=== PATIENT | male | born 1940 | race Caucasian/White ===

== ENCOUNTER 2016-11-27 19:46 | Inpatient (IN) | payer MEDICARE, OTHER ==
[~2016-11-27] VITALS: Ht 157.5 cm; Wt 64.5 kg
[2016-11-27] MEDS ORDERED: CLON-379 PO (21:06)
[2016-11-27] MEDS ORDERED: PIOG30TA26 PO (21:07)
[2016-11-27] MEDS ORDERED: AMLO1CAP10 PO (21:07)
[2016-11-27] MEDS ORDERED: SILO8CAP PO (21:08)
[2016-11-27] MEDS ORDERED: ESOM40CA PO (21:09)
[2016-11-27] MEDS ORDERED: ASPI-664 PO (21:09)
[2016-11-27] MEDS ORDERED: OLME1TAB5 PO (21:09)
[2016-11-27] MEDS ORDERED: ADV25050 INHALATION (21:10)
[2016-11-27] MEDS ORDERED: EZET10TA3 PO (21:10)
[2016-11-27] MEDS ORDERED: MECL-77 PO (21:11)
[2016-11-27] MEDS ORDERED: UMEC62.5 IH (21:11)
[2016-11-27] MEDS ORDERED: NAPR-688 PO (21:12)
[2016-11-27] MEDS ORDERED: MEMA5TAB PO (21:12)
[2016-11-27] MEDS ORDERED: LORA0.5T PO (21:13)
[2016-11-27 21:34] LABS: BASOPHILS % 0.4 % (0.0-2.0); EOSINOPHILS # 0.1 10^3/ul (0.0-0.5); HEMATOCRIT 37.6 % (42.0-52.0); HEMOGLOBIN 12.8 g/dl (14.0-18.0); LYMPHOCYTES # 1.4 10^3/ul (0.8-2.9); LYMPHOCYTES % 17.6 % (15.0-51.0); MEAN CORPUSCULAR HEMOGLOBIN 31.1 pg (29.0-33.0); MEAN CORPUSCULAR VOLUME 91.3 fl (82.0-101.0); MEAN PLATELET VOLUME 9.2 fl (7.4-10.4); MONOCYTE # 0.7 10^3/ul (0.3-0.9); MONOCYTES % 9.5 % (0.0-11.0); NEUTROPHILS % 71.1 % (39.0-77.0); PLATELET COUNT 393 10^3/UL (140-415); RED BLOOD COUNT 4.12 10^6/ul (4.70-6.10); RED CELL DISTRIBUTION WIDTH 12.3 % (11.5-14.5); WHITE BLOOD COUNT 7.8 10^3/ul (4.8-10.8)
[2016-11-27 21:42] LABS: INR 1.24; PROTIME 15.7 Sec (12.2-14.2); PT RATIO 1.2
[2016-11-27 21:43] LABS: PARTIAL THROMBOPLASTIN TIME 29.5 Sec (25.0-35.0)
[2016-11-27 21:48] LABS: ANION GAP 20 (8-16); BLOOD UREA NITROGEN 23 mg/dl (7-20); CALCIUM 9.5 mg/dl (8.4-10.2); CARBON DIOXIDE 27 mmol/L (21-31); CHLORIDE 102 mmol/L (97-110); CREATININE 0.96 mg/dl (0.61-1.24); GLUCOSE 151 mg/dl (70-220); POTASSIUM 4.2 mmol/L (3.5-5.1); SODIUM 145 mmol/L (135-144)
--- NOTE | 2016-11-27 21:50 | RADRPT ---
PROCEDURE: XR Chest. CLINICAL INDICATION: Chest pain. TECHNIQUE: Portable AP view of the chest was obtained. COMPARISON: None. FINDINGS: The cardiomediastinal silhouette is enlarged. Bibasilar atelectasis and pulmonary vascular congesti on is present. Blunting of the costophrenic angles is compatible with small bilateral pleural effus ions. There is no evidence of pneumothorax. Degenerative spondylosis of the thoracic spine is note d. There is no evidence of acute osseous abnormality. Faint calcification is seen within the aorta RPTAT:HJJR IMPRESSION: 1. Combination of findings consistent with congestive heart failure with bilateral pleural effusions . Consider follow-up evaluation. 2. Aortic atherosclerosis is present. Physician Batsheva Date Time Electronically viewed and signed by Zacarias Crawford Physician on 11/27/2016 21:50 JR/
[2016-11-27 22:07] LABS: TROPONIN-I < 0.012 ng/ml (0.00-0.12)
--- NOTE | 2016-11-27 22:14 | ERA ---
ER Documentation Chief Complaint Date/Time DATE: 11/27/16 TIME: 22:09 Chief Complaint sent by his PMD(Dr Gutierrez) to [facility] & possible admit HPI This is a 76-year-old male who was sent in to the emergency room by his tire rebuilder, Dr. Mendenhall for evaluation of chest pain. This patient had an outpatient echocardiogram which did reveal pericardial effusion. The patient was sent to the ER for admission for pericardiocentesis. He states that he has some chest pain worse with laying flat. He denies any shortness of breath at this time.The patient is denying any aggravating or relieving factors for his symptoms ROS All systems reviewed and are negative except as per history of present illness. Medications Home Meds Reported Medications Lorazepam* (Lorazepam*) 0.5 Mg Tablet, 0.5 MG PO Q8 Y for ANXIETY, TAB 11/27/16 Memantine* (Namenda*) 5 Mg Tablet, 5 MG PO BID, #60 TAB 11/27/16 Naproxen* (Naproxen*) 500 Mg Tablet, 500 MG PO BID, TAB 11/27/16 Meclizine Hcl* (Meclizine Hcl*) 25 Mg Tablet, 25 MG PO Q8H Y for DIZZINESS, TAB 11/27/16 Umeclidinium [place] (Incruse Ellipta) 62.5 Mcg Blst.w.dev, 62.5 MCG IH DAILY 11/27/16 Salmeterol Xinaf/Fluticasone* (Advair*) 250-50 Diskus Inhaler, 1 INH INHALATION BID, #1 INHALER 11/27/16 Ezetimibe* (Zetia*) 10 Mg Tablet, 10 MG PO DAILY, TAB 11/27/16 Esomeprazole Mag Trihydrate (Nexium) 40 Mg Capsule.dr, 40 MG PO DAILY, #30 CAP 11/27/16 Aspirin* (Aspirin* EC) 81 Mg Tablet.dr, 81 MG PO DAILY, TAB 11/27/16 Olmesartan/Hydrochlorothiazide (Benicar Hct 40-25 mg Tablet) 1 Each Tablet, 1 EACH PO DAILY, TAB 11/27/16 Silodosin (Rapaflo) 8 Mg Capsule, 8 MG PO HS, CAP 11/27/16 Pioglitazone Hcl* (Pioglitazone Hcl*) 30 Mg Tablet, 30 MG PO DAILY, TAB 11/27/16 Amlodipine Besylate/Benazepril (Amlodipine-Benazepril 5-20 mg) 1 Each Capsule, 1 EACH PO DAILY, CAP 11/27/16 Clonidine Hcl* (Clonidine Hcl*) 0.1 Mg Tab, 0.1 MG PO TID Y for HTN, TAB 11/27/16 Allergies Allergies: Coded Allergies: No Known Allergy (Unverified , 11/27/16) PMhx/Soc History of Surgery: No Anesthesia Reaction: No Hx Neurological Disorder: No Hx Respiratory Disorders: No Hx Cardiac Disorders: Yes (htn) Hx Psychiatric Problems: No Hx Miscellaneous Medical Probl: Yes (dm) Hx Alcohol Use: No Hx Substance Use: No Hx Tobacco Use: Yes Smoking Status: Former smoker Physical Exam Vitals Vital Signs Date Time Temp Pulse Resp B/P Pulse Ox O2 Delivery O2 Flow Rate FiO2 11/27/16 21:37 98.5 74 16 110/74 98 Nasal Cannula 2.0 11/27/16 20:52 Nasal Cannula 2 11/27/16 20:52 71 22 125/79 96 Room Air 11/27/16 20:27 98.9 76 18 118/74 97 Physical Exam INITIAL VITAL SIGNS: Reviewed by me GENERAL: The patient is well developed and appropriate for usual state of health in no apparent distress HEENT: Pupils equal, round, and reactive to light. EOMI. There is no scleral icterus. NECK: C-spine is soft and supple, there is no meningismus. There is no cervical lymphadenopathy. LUNGS: Coarse breath sounds bilaterally. There are no rales, wheezes or rhonchi. HEART: Regular rate and rhythm, no murmurs, clicks, rubs or gallops. ABDOMEN: Soft, non-tender, non-distended. There are bowel sounds in all four quadrants. No rebound or guarding. EXTREMITIES: There is no peripheral cyanosis or edema. No focal swelling or erythema. NEUROLOGICAL: The patient moves all four extremities with 5/5 strength. Cranial nerves II - XII are intact. Normal gait. Alert and oriented SKIN: There is no apparent rash or petechiae. HEME/LYMPHATIC: There is no evidence of excessive bruising or lymphedema. PSYCHIATRIC: The patient does not appear anxious or depressed. Result Diagram: 8/30/17 2049 8/30/17 2049 Results 24 hrs Laboratory Tests Test 11/27/16 20:49 White Blood Count 7.810^3/ul Red Blood Count 4.1210^6/ul Hemoglobin 12.8g/dl Hematocrit 37.6% Mean Corpuscular Volume 91.3fl Mean Corpuscular Hemoglobin 31.1pg Mean Corpuscular Hemoglobin Concent 34.0g/dl Red Cell Distribution Width 12.3% Platelet Count 93554^3/UL Mean Platelet Volume 9.2fl Neutrophils % 71.1% Lymphocytes % 17.6% Monocytes % 9.5% Eosinophils % 1.0% Basophils % 0.4% Nucleated Red Blood Cells % 0.0/100WBC Neutrophils # (Manual) 5.510^3/ul Lymphocytes # 1.410^3/ul Monocytes # 0.710^3/ul Eosinophils # 0.110^3/ul Basophils # 0.010^3/ul Nucleated Red Blood Cells # 0.010^3/ul Prothrombin Time 15.7Sec Prothrombin Time Ratio 1.2 INR International Normalized Ratio 1.24 Activated Partial Thromboplast Time 29.5Sec Sodium Level 145mmol/L Potassium Level 4.2mmol/L Chloride Level 102mmol/L Carbon Dioxide Level 27mmol/L Anion Gap 20 Blood Urea Nitrogen 23mg/dl Creatinine 0.96mg/dl Glucose Level 151mg/dl Calcium Level 9.5mg/dl Troponin I < 0.012ng/ml Procedures/[facility] EKG: Rate/Rhythm: [Normal Sinus Rhythm] QRS, ST, T-waves: [No changes consistent w/ acute ischemia] Impression: [No evidence of ischemia or arrhythmia] Chest X-ray 1V Interpreted by me: Soft Tissue: No acute abnormalities Bones: No acute abnormalities Mediastinum/Cardiac Silhouette/Lungs: Pulmonary vascular congestionThis 76- year-old male presents to the emergency room for evaluation of chest pain. When I evaluated him he was hemodynamically stable, and nontoxic appearing. The patient was sent in by his tire rebuilder because he had an outpatient ultrasound which did show a pericardial effusion. The patient was sent in for admission for a pericardiocentesis tomorrow, November 28, 2016. This patient has no signs of cardiac tamponade in the emergency room, he is not hypotensive, he is hemodynamically stable and will be admitted to his primary care physician, Dr. Hernandez who is aware and okay with the plan of care. This patient will be placed in the intensive care unit at this time Critical Care: Excluding all billable procedures Time: 34 minutes Treatments/Evaluations: Close monitoring and treatment of unstable vital signs, cardiorespiratory, and neurologic status, while maintaining tight balance of fluid, respiratory, and cardiac interventions, lab value interpretation, multiple bedside reevaluation, coordination of nursing care, multiple consultations. Departure Diagnosis: Primary Impression: Pericardial effusion Additional Impression: Normocytic anemia Condition: Stable RUBI DELGADO DO Nov 27, 2016 22:14
[2016-11-28] VITALS (25 sets, daily range): BP systolic 99–138; BP diastolic 60–105; PULSE 56–74; RESP 12–24; TEMP 98.1; Ht 157.5 cm; Wt 64.5 kg
[2016-11-28] MEDS ORDERED: ACETAMINOPHEN 650 MG SUPP PR PRN
[2016-11-28] MEDS ORDERED: SOD CHLORIDE 0.9% 1,000 ML IV SCH
[2016-11-28 03:14] LABS: CREATINE KINASE 36 IU/L (23-200)
[2016-11-28 03:25] LABS: CK-MB 0.63 ng/ml (0.0-2.4)
[2016-11-28 03:36] LABS: TROPONIN-I < 0.012 ng/ml (0.00-0.12)
[2016-11-28 05:44] LABS: BASOPHILS % 0.5 % (0.0-2.0); EOSINOPHILS # 0.1 10^3/ul (0.0-0.5); EOSINOPHILS % 1.2 % (0.0-7.0); HEMATOCRIT 32.2 % (42.0-52.0); HEMOGLOBIN 10.5 g/dl (14.0-18.0); LYMPHOCYTES # 1.6 10^3/ul (0.8-2.9); LYMPHOCYTES % 24.1 % (15.0-51.0); MEAN CORPUSCULAR HEMOGLOBIN 30.3 pg (29.0-33.0); MEAN CORPUSCULAR HGB CONC 32.6 g/dl (32.0-37.0); MEAN CORPUSCULAR VOLUME 92.8 fl (82.0-101.0); MEAN PLATELET VOLUME 9.1 fl (7.4-10.4); MONOCYTE # 0.7 10^3/ul (0.3-0.9); MONOCYTES % 11.5 % (0.0-11.0); NEUTROPHILS % 62.2 % (39.0-77.0); PLATELET COUNT 303 10^3/UL (140-415); RED BLOOD COUNT 3.47 10^6/ul (4.70-6.10); RED CELL DISTRIBUTION WIDTH 12.6 % (11.5-14.5); WHITE BLOOD COUNT 6.4 10^3/ul (4.8-10.8)
[2016-11-28] MEDS ORDERED: PANTOPRAZOLE 40 MG INJ IV SCH (06:00)
[2016-11-28 06:02] LABS: INR 1.26; PROTIME 15.9 Sec (12.2-14.2); PT RATIO 1.2
[2016-11-28 06:03] LABS: PARTIAL THROMBOPLASTIN TIME 31.7 Sec (25.0-35.0)
[2016-11-28] MEDS ORDERED: FENTAnyl 50 MCG/ML VIAL ONE (07:39)
[2016-11-28] MEDS ORDERED: MIDAZOLAM 1 MG/ML 2 ML INJ ONE (07:39)
[2016-11-28] MEDS ORDERED: LIDOCAINE 1% (MDV) 20 ML INJ ONE ×2 (07:39→08:17)
--- NOTE | 2016-11-28 07:43 | CONS ---
Date/Time of Note Date/Time of Note DATE: 11/28/16 TIME: 07:34 Assessment/Plan Assessment/Plan Chief Complaint/Hosp Course Large pericardial effusion: Pt has been progressively symptomatic over just 2 weeks and has early tamponade physiology by echo. Clinically hemodynamics do not suggest tamponade but the pt needs pericardiocentesis for diagnosis and symptom relief. Pt and family are agreeable. Dr. Nicole will be on standby. 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 Due to severe progressive symptoms, the pt was sent for admission for pericardiocentesis for diagnosis and symptom relief. Currently still with SOB at rest but no chest pain. Agreeable to pericardiocentesis and understands the risks and benefits. per HPI Past Medical History per HPI Social History Smoking Status: Former smoker Exam/Review of Systems Vital Signs Vitals Vital Signs Date Time Temp Pulse Resp B/P Pulse Ox O2 Delivery O2 Flow Rate FiO2 11/28/16 06:46 98.1 69 24 112/72 97 Room Air 2.0 Nasal Cannula Exam Constitutional: alert, oriented Head: atraumatic, normocephalic Neck: jvd (12cm) Respiratory: crackles/rales, diminished breath sounds, No clear to auscultation Cardiovascular: edema (1-2+), regular rate and rhythm, systolic murmur (3/6 systolic murmur ) Gastrointestinal: non-tender, soft Extremities: normal pulses Neurological: nl mental status, nl speech Skin: No rash or lesions Results Result Diagram: 11/28/1652111/27/162048 Results 24 hrs Laboratory Tests Test 11/27/16 20:49 11/28/16 02:30 11/28/16 05:22 White Blood Count 7.8 6.4 Red Blood Count 4.12 L 3.47 L Hemoglobin 12.8 L 10.5 L Hematocrit 37.6 L 32.2 L Mean Corpuscular Volume 91.3 92.8 Mean Corpuscular Hemoglobin 31.1 30.3 Mean Corpuscular Hemoglobin Concent 34.0 32.6 Red Cell Distribution Width 12.3 12.6 Platelet Count 393 303 # Mean Platelet Volume 9.2 9.1 Neutrophils % 71.1 62.2 Lymphocytes % 17.6 24.1 Monocytes % 9.5 11.5 H Eosinophils % 1.0 1.2 Basophils % 0.4 0.5 Nucleated Red Blood Cells % 0.0 0.0 Neutrophils # (Manual) 5.5 4.0 Lymphocytes # 1.4 1.6 Monocytes # 0.7 0.7 Eosinophils # 0.1 0.1 Basophils # 0.0 0.0 Nucleated Red Blood Cells # 0.0 0.0 Prothrombin Time 15.7 H 15.9 H Prothrombin Time Ratio 1.2 1.2 INR International Normalized Ratio 1.24 1.26 Activated Partial Thromboplast Time 29.5 31.7 Sodium Level 145 H Potassium Level 4.2 Chloride Level 102 Carbon Dioxide Level 27 Anion Gap 20 H Blood Urea Nitrogen 23 H Creatinine 0.96 Glucose Level 151 Calcium Level 9.5 Troponin I < 0.012 < 0.012 Creatine Kinase 36 Creatine Kinase Index 1.8 Creatinine Kinase MB (Mass) 0.63 Medications Medications Current Medications Acetaminophen (Tylenol Supp) 650 mg Q6H PRN [place] PAIN; Start 11/28/16 at 00:00 Pantoprazole 40 mg 40 mg DAILY@06 IV Last administered on 11/28/16 06:42; Admin Dose 40 MG; Start 11/28/16 at 06:00 Sodium Chloride (NS) 1,000 ml @ 0 mls/hr Q0M IV ; Start 11/28/16 at 00:00 PAUL MCKEON Nov 28, 2016 07:43
--- NOTE | 2016-11-28 08:54 | OPR ---
Date/Time of Note Date/Time of Note DATE: 11/28/16 TIME: 08:45 Operative Report Free Text/Dictation Procedure Date: 11/28/2016 Procedures Performed: Pericardiocentesis Pre-operative Diagnosis:Large pericardial effusion, CHF Post-operative Diagnosis:same Indications:76 yo M with large symptomatic pericardial effusion with early tamponade physiology on echo. Description of Procedure: After informed consent, the patient was brought to the cardiac catheterization lab. The procedure site was prepped and draped in usual manner. The patient was premedicated with versed 2mg and fentanyl 75 mcg. 10mL lidocaine was injected into the subxyphoid area. Under ultrasound guidance, the needle was advanced to the pericardium until fluid was obtained. The wire was advanced and under fluoroscopy confirmed to be in the pericardium. Next the pigtail catheter was advanced and agitated saline confirmed that it was in the pericardium as well. Findings: A total of 700 mL of sanguinous effusion was removed. 120 mL was sent to the lab for appropriate studies. The pt tolerated the procedure well. Assessment: Large pericardial effusion s/p pericardiocentesis Plan: To ICU for observation Stat CXR keep pigtail in for 1-2 days until effusion <30-50mL daily F/u cytology, cultures PAUL MCKEON Nov 28, 2016 08:54
[2016-11-28] MEDS ORDERED: KETOROLAC 30 MG INJ IM STA (08:55)
--- NOTE | 2016-11-28 09:17 | HP ---
Date/Time of Note Date/Time of Note DATE: 11/28/16 TIME: 09:01 Assessment/Plan VTE Prophylaxis VTE Prophylaxis Intervention: ambulation, anti-embolic stocking VTE Contraindication Reason: peripheral vascular disease Lines/Catheters IV Catheter Type (from Nrs): Saline Lock Central line still needed: No Urinary Cath still in place: No Reason Cath still needed: urinary retention Assessment/Plan Assessment/Plan 1.Acute pericarditis- s/p pericardocentesis 2.DM type 2- corrected by diet 3.HTN- now hypotensive 4.LBP- with spinal stenosis 5.Dyslipidemia 6.Memory impairment 7.PTSD 8.BPH 9.LORENZO 10.Osteoporosis 11.Dizziness 12.Major depression 13.Weight loss 14.Hx of having 1 degree AV block 15.Recurrent pneumonias 16. Low vit "D" level 17.Pleurisy with possible polyserositis Cont'd Hospitalization Reason: as above. HPI/ROS Admit Date/Time Admit Date/Time cp with worsening of sob last 3-4 weeks after upper resp infection and bronchitis/pneumonia. Chest pressure and sob improved only mildly after antibiotics and short course of prednisone tapering down (from 30mg x 2 days until 10mg qd x 2 days). Referred to for cardiology evaluation.Pericarditis was Diagnosed. At the time of this dictation more than 700 cc of bloody fluid was removed in a cat lab and the patient is in 112 of ICU in stable condition. ROS Subjective hx not possible: pt critical status Constitutional: diaphoresis, fatigue, nausea, poor po, weight change, No chills, No disoriented, No febrile, No improved, No no complaints, No other Eyes: No discharge, No no complaints, No other, No pain, No redness, No visual change ENT: No bleeding, No congestion, No discharge, No dysphagia, No no complaints, No other, No pain, No sore throat Respiratory: cough, pain, pleuritic pain, shortness of breath, No no complaints, No other, No sputum, No wheezing Cardiovascular: chest pain, lightheadedness, orthopenea, palpitations, paroxysmal nocturnal dyspnea, No edema, No no complaints, No other Gastrointestinal: constipation, decreased appetite, flatus, nausea, passing stool, No blood, No diarrhea, No no complaints, No other, No pain, No vomiting Genitourinary: dysuria, No bleeding, No discharge, No flank pain, No hematuria, No no complaints, No other Musculoskeletal: back pain, bone/joint pain, No neck pain, No no complaints, No other, No restricted range of motion, No swelling Skin: rash, No bruising, No erythema, No laceration, No no complaints, No other, No pruritis, No skin lesions Neurologic: dizziness, No confusion, No focal-weakness, No headache, No no complaints, No other, No seizure, No syncope Endocrine: weight change (lost 4-5 lb in 3 weeks.), No dry skin, No no complaints, No other, No polydypsia, No polyuria, No temp intolerance Lymphatic: No adenopathy, No lymphadema, No no complaints, No other, No tender nodes Psychological: anxiety, No confusion, No depression, No nl mood/affect, No no complaints, No other, No suicidal Immunologic: No immunodeficiency, No no complaints, No other, No pruritis, No rhinitis, No urticaria PMH/Family/Social Past Medical History Medical History: angina, congestive heart failure, coronary artery disease, diabetes (resolved after the weight loss.), GERD, high cholesterol, hypertension, urinary tract infection Past Surgical History Past Surgical Hx: endoscopy Family History Significant Family History: heart disease Social History Alcohol Use: none Smoking Status: Former smoker Drug Use: none Exam/Review of Systems Vital Signs Vitals Vital Signs Date Time Temp Pulse Resp B/P Pulse Ox O2 Delivery O2 Flow Rate FiO2 11/28/16 06:46 98.1 69 24 112/72 97 Room Air 2.0 Nasal Cannula Exam Constitutional: alert, distress, frail, oriented, well developed, No non-verbal, No other Psych: anxiety, No confusion, No depression, No nl mood/affect, No no complaints, No other, No suicidal Head: atraumatic, No hematomas, No lacerations, No normocephalic, No other Eyes: EOMI, PERRL (s/p cataractectomy changes.), nl lids, No fundi, disc, No icteric, No nl conjunctiva, No nl sclera, No other ENMT: other, tympanic membranes (sclertotic.) Neck: bruits, jvd, nuchal rigidity Respiratory: diminished breath sounds, normal air movement, No clear to auscultation, No congested cough, No crackles/rales, No intercostal retraction, No labored breathing, No other, No respirations, No tactile fremitus, No wheezing Cardiovascular: bruits, systolic murmur, No S3, No S4, No diastolic murmur, No edema, No gallop, No irregular rhythm, No jugular venous distention (JVD), No murmurs/extra sounds, No nl pulses, No other, No regular rate and rhythm, No rub Gastrointestinal: nl liver, spleen, soft, No ascites, No bowel sounds, No distended, No firm, No hepatomegaly, No mass , No non-tender, No other, No rebound or guarding, No splenomegaly, No surgical scars, No tender Genitourinary - Male: nl penis, nl scrotum, No CVA tenderness, No discharge, No other Musculoskeletal: joint tenderness, muscle tone, muscle weakness, nl gait and stance (unstable.), No nl extremities to inspection, No other, No range of motion, No spine non- tender, No swelling Extremities: No calf tenderness, No clubbing, No cyanosis, No edema, No normal pulses, No other, No palpable cord, No pitting pedal edema, No tenderness Labs Result Diagram: 11/28/1652111/27/162048 Medications Medications Current Medications Acetaminophen (Tylenol Supp) 650 mg Q6H PRN [place] PAIN; Start 11/28/16 at 00:00 Pantoprazole 40 mg 40 mg DAILY@06 IV Last administered on 11/28/16t 06:42; Admin Dose 40 MG; Start 11/28/16 at 06:00 Sodium Chloride (NS) 1,000 ml @ 0 mls/hr Q0M IV ; Start 11/28/16 at 00:00 Colchicine (Colchicine) 0.6 mg BID PO ; Start 11/28/16 at 10:30 Famotidine (Pepcid Iv) 20 mg BID IV ; Start 11/29/16 at 09:00 SALEEM LEWIS MD Nov 28, 2016 09:12
--- NOTE | 2016-11-28 09:53 | RADRPT ---
Echocardiogram Report Patient Name: JOSE MANUEL PAREKH Gender: Male Date: 1940 Study Date: 28-Nov-2016 Paedodontist: Marielos Cerda RDCS Location: [facility] Ref. Physician: DEREK ALBRIGHT Quality: Good Procedures: Transthoracic echocardiogram examination. Indications: Pericardiocentesis. Findings Pericardium: Large pericardial effusion up to 3.1 cm in subcostal views with evidence of RV collapse prior to pericardiocentesis. Agitated saline confirms proper placement of pigtail catheter. Resolution of pericardial effusion after pericardiocentesis. Conclusions 1.Limited study during pericardiocentesis. 2.Large pericardial effusion up to 3.1 cm in subcostal views with evidence of RV collapse prior to pericardiocentesis. 3.Agitated saline confirms proper placement of pigtail catheter. 4.Resolution of pericardial effusion after pericardiocentesis. Electronically Signed By: Derek Albright 28-Nov-2016 09:52:46 -0700 Patient Name: JOSE MANUEL PAREKH Study Date: 28-Nov-2016 [id number]
--- NOTE | 2016-11-28 09:54 | RADRPT ---
PROCEDURE: XR Chest 1 view. CLINICAL INDICATION: Chest pain, status post pericardiocentesis. TECHNIQUE: AP views of the chest was obtained. COMPARISON: Yesterday FINDINGS: The heart is large. Calcified atherosclerosis is noted in the aorta. Angiocatheter is identified ov er the inferior margin of the heart and could reflect a pericardial drain. Overall heart size is si milar to prior exam. Atelectasis versus infiltrates at the lung bases, combined with small pleural effusions are stable. Central pulmonary vascular congestion and interstitial prominence is unchange d. The osseous structures are unchanged. IMPRESSION: Cardiomegaly with calcified atherosclerosis in the aorta. New pigtail catheter over the inferior margin of the heart that could reflect a pericardial drain. U nchanged heart size. Stable central pulmonary vascular congestion and mild interstitial prominence in both lungs. Stable atelectasis versus infiltrates at the lung bases, combined with small pleural effusions. RPTAT: AA .Adonay Galo MD, MD Date Time Electronically viewed and signed by .Adonay Galo MD, on 11/28/2016 09:53 .P/
[2016-11-28 10:28] LABS: FLD MN% 88.4 %; FLD PMN% 11.6 %; FLD RBC 1757 /uL; FLD WBC 3712 /cmm
[2016-11-28] MEDS: COLCHICINE 0.6 MG TAB PO SCH ×3 (10:30→20:54)
[2016-11-28 10:36] LABS: CREATINE KINASE 50 IU/L (23-200)
[2016-11-28 10:46] LABS: FLD CLARITY BLOODY; FLD COLOR RED; FLD TYPE PERICARDIAL
[2016-11-28 10:48] LABS: CK-MB 1.41 ng/ml (0.0-2.4); TROPONIN-I < 0.012 ng/ml (0.00-0.12)
[2016-11-28 11:13] LABS: FLUID GLUCOSE 102 mg/dl; FLUID TYPE PERICARDIAL FLUID
[2016-11-28 11:14] LABS: FLUID TOTAL PROTEIN 4.8 g/dl; FLUID TYPE PERICARDIAL FLUID
--- NOTE | 2016-11-28 11:28 | CONS ---
Date/Time of Note Date/Time of Note DATE: 11/28/16 TIME: 11:21 Assessment/Plan Assessment/Plan Additional Assessment/Plan Chest x-ray was reviewed from today which is showing pericardial drain in place. Minimal bilateral patchy infiltrates are present. Assessment and recommendations; 1. Patient admitted with shortness of breath discovered to have very large pericardial effusion with early tamponade, status post pericardiocentesis with placement of pericardial drain. 2. Possibly bilateral pneumonia. Next Continue current supportive care. Add cefepime and doxycycline IV. Further antibiotic adjustment to be done once pericardial fluid culture results are obtained. Follow-up chest x-ray in 24 hours. Consultation Date/Type/Reason Admit Date/Time cp with worsening of sob last 3-4 weeks after upper resp infection and bronchitis/pneumonia. Chest pressure and sob improved only mildly after antibiotics and short course of prednisone tapering down (from 30mg x 2 days until 10mg qd x 2 days). Referred to for cardiology evaluation.Pericarditis was Diagnosed. At the time of this dictation more than 700 cc of bloody fluid was removed in a cat lab and the patient is in 112 of ICU in stable condition. Date of Consultation: Nov 28, 2016 Type of Consultation: Pulmonary/critical care Reason for Consultation Pulmonary consultation requested for evaluation of shortness of breath. History of presenting illness; and is a pleasant 76-year-old male who was sent over to the ER by the patient's marketing analytics analyst with complaints of chest pain, an echocardiogram done on outpatient basis revealed a large pericardial effusion with early tamponade. This morning the patient underwent pericardiocentesis, with placement of pericardial drain, 750 mL of fluid was drained. The patient is now reporting decreased shortness of breath but is complaining of pain at the catheter insertion site. Detailed history was obtained from patient's 2 children who were present in the room. According to then the patient has been having shortness of breath and cough for the last several weeks and has been seen at various hospitals without definitive diagnosis being made until just recently. He himself denies any coughing no any sputum production hemoptysis fever chills. According to the patient's family there is no prior history of any pericardial effusion or any other episodes of shortness of breath or pneumonia. Past medical history; 1. History of bilateral cataract surgery. 2. No history of any pneumonia, any pericardial effusion. Medications; reviewed. Allergies; none. Social history; patient quit smoking 40 years ago. Most of alcohol or drug abuse. Family history; patient is a . Has 2 children. No history of any significant illnesses in the family. 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 Review of systems; denies any headache, visual changes. Complains of chest pain at pericardial catheter insertion site in the epigastric area. Denies any wheezing, sputum production or hemoptysis. Denies any weight loss. Any fever or chills. Denies any abdominal pain, nausea vomiting. Any melena or hematochezia. Any weight loss. Denies any orthopnea. Shortness of breath is now improved. General exam; elderly male, awake and alert. Currently in no distress. Eyes: No discharge, No no complaints, No other, No pain, No redness, No visual change ENT: No bleeding, No congestion, No discharge, No dysphagia, No no complaints, No other, No pain, No sore throat Respiratory: cough, pain, pleuritic pain, shortness of breath, No no complaints, No other, No sputum, No wheezing Cardiovascular: chest pain, lightheadedness, orthopenea, palpitations, paroxysmal nocturnal dyspnea, No edema, No no complaints, No other Gastrointestinal: constipation, decreased appetite, flatus, nausea, passing stool, No blood, No diarrhea, No no complaints, No other, No pain, No vomiting Genitourinary: dysuria, No bleeding, No discharge, No flank pain, No hematuria, No no complaints, No other Musculoskeletal: back pain, bone/joint pain, No neck pain, No no complaints, No other, No restricted range of motion, No swelling Skin: rash, No bruising, No erythema, No laceration, No no complaints, No other, No pruritis, No skin lesions Neurologic: dizziness, No confusion, No focal-weakness, No headache, No no complaints, No other, No seizure, No syncope Lymphatic: No adenopathy, No lymphadema, No no complaints, No other, No tender nodes Psychological: anxiety, No confusion, No depression, No nl mood/affect, No no complaints, No other, No suicidal Immunologic: No immunodeficiency, No no complaints, No other, No pruritis, No rhinitis, No urticaria Past Medical History Medical History: angina, congestive heart failure, coronary artery disease, diabetes (resolved after the weight loss.), GERD, high cholesterol, hypertension, urinary tract infection Past Surgical History Past Surgical Hx: endoscopy Social History Alcohol Use: none Smoking Status: Former smoker Drug Use: none Exam/Review of Systems Vital Signs Vitals Vital Signs Date Time Temp Pulse Resp B/P Pulse Ox O2 Delivery O2 Flow Rate FiO2 11/28/16 10:15 64 14 105/68 97 11/28/16 10:00 Nasal Cannula 2.0 11/28/16 09:15 98.5 Exam HEENT exam; supple neck, no JVD. No lymphadenopathy. Midline trachea. No thyromegaly. Patient has fair dentition. Has bilateral intraocular lens implants. Chest exam; diminished but clear breath sound. S1-S2 audible, no murmurs. Regular rhythm. There is a pericardial drain in place. Abdomen exam; soft, no organomegaly. Bowel sounds audible. Nontender. Extremity exam; no peripheral edema. Pulses 2+ bilaterally. ZIPPER JOINER exam; no focal motor deficit. Results Result Diagram: 11/28/1652111/27/162048 Results 24 hrs Laboratory Tests Test 11/27/16 20:49 11/28/16 02:30 11/28/16 05:22 11/28/16 08:30 White Blood Count 7.8 6.4 Red Blood Count 4.12 L 3.47 L Hemoglobin 12.8 L 10.5 L Hematocrit 37.6 L 32.2 L Mean Corpuscular Volume 91.3 92.8 Mean Corpuscular Hemoglobin 31.1 30.3 Mean Corpuscular Hemoglobin Concent 34.0 32.6 Red Cell Distribution Width 12.3 12.6 Platelet Count 393 303 # Mean Platelet Volume 9.2 9.1 Neutrophils % 71.1 62.2 Lymphocytes % 17.6 24.1 Monocytes % 9.5 11.5 H Eosinophils % 1.0 1.2 Basophils % 0.4 0.5 Nucleated Red Blood Cells % 0.0 0.0 Neutrophils # (Manual) 5.5 4.0 Lymphocytes # 1.4 1.6 Monocytes # 0.7 0.7 Eosinophils # 0.1 0.1 Basophils # 0.0 0.0 Nucleated Red Blood Cells # 0.0 0.0 Prothrombin Time 15.7 H 15.9 H Prothrombin Time Ratio 1.2 1.2 INR International Normalized Ratio 1.24 1.26 Activated Partial Thromboplast Time 29.5 31.7 Sodium Level 145 H Potassium Level 4.2 Chloride Level 102 Carbon Dioxide Level 27 Anion Gap 20 H Blood Urea Nitrogen 23 H Creatinine 0.96 Glucose Level 151 Calcium Level 9.5 Troponin I < 0.012 < 0.012 Creatine Kinase 36 Creatine Kinase Index 1.8 Creatinine Kinase MB (Mass) 0.63 Body Fluid Type PERICARDIAL Body Fluid Volume 105.0 Body Fluid Color RED Body Fluid Appearance BLOODY Body Fluid WBC 3712 Body Fluid RBC (Auto) 1757 Body Fluid Polynuclear WBCs (%) 11.6 Body Fluid Mononuclear Cells % Auto 88.4 Body Fluid Glucose 102 Body Fluid Total Protein 4.8 Body Fluid Lactate Dehydrogenase Test 11/28/16 09:55 Creatine Kinase 50 Creatine Kinase Index 2.8 Creatinine Kinase MB (Mass) 1.41 Troponin I < 0.012 Medications Medications Current Medications Acetaminophen 650 mg 650 mg Q6H PRN MD PAIN; Start 11/28/16 at 00:00 Sodium Chloride (NS) 1,000 ml @ 0 mls/hr Q0M IV ; Start 11/28/16 at 00:00 Colchicine (Colchicine) 0.6 mg BID PO ; Start 11/28/16 at 10:30 Famotidine (Pepcid Iv) 20 mg BID IV ; Start 11/29/16 at 09:00 Morphine Sulfate (morphine) 2 mg Q4H PRN IV PAIN; Start 11/28/16 at 09:30 GUILLE CALLAHAN Nov 28, 2016 11:28
--- NOTE | 2016-11-28 11:47 | RADRPT ---
PROCEDURE: US Abdomen and Retroperitoneum. CLINICAL INDICATION: Abdominal pain. TECHNIQUE: Multiple real-time longitudinal and transverse images were acquired of the patient's ab domen and retroperitoneum utilizing a curved array transducer. COMPARISON: No prior studies are available for comparison. FINDINGS: The liver is normal in size and normal in echogenicity. The liver has a normal smooth surface. Ther e is no focal hepatic lesion. Color Doppler and pulsed Doppler sonography demonstrate normal antegra de flow in the portal vein. The gallbladder is contracted but otherwise unremarkable. The bile ducts are normal with the common bile duct measuring 6.4 mm in diameter. The spleen is normal in size. There is no focal splenic lesion. The pancreas is not visualized. There is no ascites. There is a right pleural effusion. The right kidney measures 10.7 cm and the left kidney measures 10.1 cm. There is no renal mass. There is no hydronephrosis or calculus. The abdominal aorta is not dilated. The inferior vena cava is unremarkable. IMPRESSION: 1. Contracted gallbladder. Otherwise normal gallbladder with no gallstones or cholecystitis. 2. Pancreas not visualized. 3. Right pleural effusion. 4. Otherwise unremarkable study. RPTAT: QQ .Nestor Philippe MD, MD Date Time Electronically viewed and signed by .Nestor Phliippe MD, on 11/28/2016 11:46 .R/
[2016-11-28] MEDS: CEFEPIME 1GM/50 ML (PMX) 50 ML IVPB SCH ×2 (12:00→20:49)
[2016-11-28] MEDS: DOXYCYCLINE 100 MG in SOD CHLORIDE 0.9% 250 ML IVPB SCH ×2 (12:08→20:53)
[2016-11-28] MEDS: morphine 2 MG INJ IV PRN ×2 (14:14→20:54)
[2016-11-29] VITALS (24 sets, daily range): BP systolic 89–133; BP diastolic 55–79; PULSE 54–73; RESP 14–27
[2016-11-29] MEDS: morphine 2 MG INJ IV PRN (03:18)
[2016-11-29] MEDS ORDERED: KETOROLAC 30 MG INJ IV STA (08:23)
[2016-11-29] MEDS: CEFEPIME 1GM/50 ML (PMX) 50 ML IVPB SCH ×2 (08:36→21:16)
[2016-11-29] MEDS: DOXYCYCLINE 100 MG in SOD CHLORIDE 0.9% 250 ML IVPB SCH ×2 (08:39→21:17)
--- NOTE | 2016-11-29 08:45 | CONS ---
Date/Time of Note Date/Time of Note DATE: 11/29/16 TIME: 08:30 Assessment/Plan Assessment/Plan Chief Complaint/Hosp Course Large pericardial effusion: s/p pericardiocentesis with 700mL removed 11/28. Serosanguinous and concerning for possible malignancy. Awaiting cytology Acute diastolic heart failure: due to above. Improved Chest/abdominal pain: from pericarditis and now drain in place DM HTN HL -toradol x 1 -ibuprofen 800mg TID -PPI -check limited echo to see if there is residual fluid. So far only 20 mL since initial drainage. Possibly remove drain today or tomorrow am -f/u cultures, cytology Problems: Consultation Date/Type/Reason Admit Date/Time Initial Consult Date 11/28/16 Type of Consultation: Cardiology Referring Provider: RUBI DELGADO DO 24 HR Interval Summary Free Text/Dictation Still with chest pain when breathing. Otherwise no events Exam/Review of Systems Vital Signs Vitals Vital Signs Date Time Temp Pulse Resp B/P Pulse Ox O2 Delivery O2 Flow Rate FiO2 11/29/16 06:00 60 16 96/58 97 Nasal Cannula 2.0 11/29/16 04:00 98.4 Intake and Output 11/28/16 11/28/16 11/29/16 15:00 23:00 07:00 Intake Total 360 ml 650 ml 100 ml Output Total 1080 ml 10 ml 210 ml Balance -720 ml 640 ml -110 ml Exam Constitutional: alert, oriented Psych: nl mood/affect Head: atraumatic, normocephalic Neck: No jvd Respiratory: clear to auscultation, diminished breath sounds Cardiovascular: edema (trace), regular rate and rhythm Gastrointestinal: non-tender, soft Neurological: nl mental status, nl speech Results Result Diagram: 11/28/1652111/27/162048 Results 24 hrs Laboratory Tests Test 11/28/16 09:55 Erythrocyte Sedimentation Rate 60.0 H Creatine Kinase 50 Creatine Kinase Index 2.8 Creatinine Kinase MB (Mass) 1.41 Troponin I < 0.012 C-Reactive Protein 4.2 H Medications Medications Current Medications Acetaminophen 650 mg 650 mg Q6H PRN ID PAIN; Start 11/28/16 at 00:00 Sodium Chloride (NS) 1,000 ml @ 0 mls/hr Q0M IV ; Start 11/28/16 at 00:00 Colchicine (Colchicine) 0.6 mg BID PO Last administered on 11/28/16 20:54; Admin Dose 0.6 MG; Start 11/28/16 at 10:30 Famotidine (Pepcid Iv) 20 mg BID IV ; Start 11/29/16 at 09:00 Morphine Sulfate 2 mg 2 mg Q4H PRN IV PAIN Last administered on 11/29/16 03:18 ; Admin Dose 2 MG; Start 11/28/16 at 09:30 Cefepime HCl 50 ml @ 100 mls/hr Q12 IVPB Last administered on 11/28/16 20:49 ; Admin Dose 100 MLS/HR; Start 11/28/16 at 11:30 Doxycycline Hyclate/Sodium Chloride (Vibramycin/NS) 250 ml @ 250 mls/hr Q12 IVPB Last administered on 11/28/16 20:53; Admin Dose 250 MLS/HR; Start at 11:30 PUAL MCKEON Nov 29, 2016 08:44
[2016-11-29] MEDS ORDERED: FAMOTIDINE 20 MG INJ IV SCH (09:00)
--- NOTE | 2016-11-29 09:01 | PN ---
Date/Time of Note Date/Time of Note DATE: 11/29/16 TIME: 08:47 Assessment/Plan VTE Prophylaxis VTE Prophylaxis Intervention: ambulation, anti-embolic stocking VTE Contraindication Reason: peripheral vascular disease Lines/Catheters IV Catheter Type (from Nrsg): Peripheral IV Central line still needed: No Urinary Cath still in place: No Reason Cath still needed: urinary retention Assessment/Plan Assessment/Plan 1.Acute pericarditis- s/p pericardocentesis 2.DM type 2- corrected by diet 3.HTN- now hypotensive 4.LBP- with spinal stenosis 5.Dyslipidemia 6.Memory impairment 7.PTSD 8.BPH 9.LORENZO 10.Osteoporosis 11.Dizziness 12.Major depression 13.Weight loss 14.Hx of having 1 degree AV block 15.Recurrent pneumonias 16. Low vit "D" level 17.Pleurisy with possible polyserositis- right pleural effusion u/s. Cont'd Hospitalization Reason: pericarditis. Subjective 24 Hr Interval Summary Free Text/Dictation Decreased chest pain and improved. Subjective hx not possible: pt critical status Constitutional: diaphoresis, improved, poor po, requiring IVF, requiring O2, No chills, No disoriented, No febrile, No no complaints, No other Eyes: No discharge, No no complaints, No other, No pain, No redness, No visual change ENT: No bleeding, No congestion, No discharge, No dysphagia, No no complaints, No other, No pain, No sore throat Respiratory: cough, pleuritic pain, shortness of breath, No no complaints, No other, No pain, No sputum, No wheezing Cardiovascular: No chest pain, No edema, No lightheadedness, No no complaints, No orthopenea, No other, No palpitations, No paroxysmal nocturnal dyspnea Gastrointestinal: constipation, decreased appetite, flatus, nausea, passing stool, No blood, No diarrhea, No no complaints, No other, No pain, No vomiting Genitourinary: dysuria, flank pain, No bleeding, No discharge, No hematuria, No no complaints, No other Musculoskeletal: back pain, bone/joint pain, neck pain, No no complaints, No other, No restricted range of motion, No swelling Skin: erythema, pruritis, No bruising, No laceration, No no complaints, No other, No rash, No skin lesions Neurologic: dizziness, headache Lymphatic: No adenopathy, No lymphadema, No no complaints, No other, No tender nodes Psychological: anxiety, depression, No confusion, No nl mood/affect, No no complaints, No other, No suicidal Exam/Review of Systems Vital Signs Vitals Vital Signs Date Time Temp Pulse Resp B/P Pulse Ox O2 Delivery O2 Flow Rate FiO2 11/29/16 06:00 60 16 96/58 97 Nasal Cannula 2.0 11/29/16 04:00 98.4 Intake and Output 11/28/16 11/28/16 11/29/16 15:00 23:00 07:00 Intake Total 360 ml 650 ml 100 ml Output Total 1080 ml 10 ml 210 ml Balance -720 ml 640 ml -110 ml Exam Constitutional: alert, frail, oriented, well developed, No distress, No non-verbal, No obese, No other Psych: anxiety, confusion, depression, nl mood/affect, No no complaints, No other, No suicidal Head: atraumatic, normocephalic Eyes: EOMI, PERRL, nl lids, No fundi, disc, No icteric, No nl conjunctiva, No nl sclera, No other ENMT: nl nasal mucosa & septum, No intubated, No mucosa pink and moist, No nl external ears & nose, No nl lips & teeth, No other, No tympanic membranes Neck: bruits, jvd, No masses, No non-tender, No nuchal rigidity, No other, No supple, No thyromegaly Respiratory: congested cough, diminished breath sounds, normal air movement, No clear to auscultation, No crackles/rales, No intercostal retraction, No labored breathing, No other, No respirations, No tactile fremitus, No wheezing Cardiovascular: bruits, nl pulses, other (Pericardocentesis catheter in place. No crepitations. 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 intact (decreased hearing.), confused, nl mental status, nl speech, nl strength, numbness, No DTR's symmetric, No focal weakness, No lethargic, No other, No reflexes, No unresponsive Skin: nl turgor, No diaphoresis, No ecchymosis, No laceration, No other, No puncture, No rash or lesions Results Result Diagram: 11/28/1652111/27/162048 Results 24 hrs Laboratory Tests Test 11/28/16 09:55 Erythrocyte Sedimentation Rate 60.0 H Creatine Kinase 50 Creatine Kinase Index 2.8 Creatinine Kinase MB (Mass) 1.41 Troponin I < 0.012 C-Reactive Protein 4.2 H Medications Medications Current Medications Acetaminophen 650 mg 650 mg Q6H PRN ME PAIN; Start 11/28/16 at 00:00 Sodium Chloride (NS) 1,000 ml @ 0 mls/hr Q0M IV ; Start 11/28/16 at 00:00 Colchicine (Colchicine) 0.6 mg BID PO Last administered on 11/28/16 20:54; Admin Dose 0.6 MG; Start 11/28/16 at 10:30 Morphine Sulfate 2 mg 2 mg Q4H PRN IV PAIN Last administered on 11/29/16 03:18 ; Admin Dose 2 MG; Start 11/28/16 at 09:30 Cefepime HCl 50 ml @ 100 mls/hr Q12 IVPB Last administered on 11/29/16 08:36; Admin Dose 100 MLS/HR; Start 11/28/16 at 11:30 Doxycycline Hyclate/Sodium Chloride (Vibramycin/NS) 250 ml @ 250 mls/hr Q12 IVPB Last administered on 11/29/16 08:39; Admin Dose 250 MLS/HR; Start at 11:30 Pantoprazole (Protonix Tab) 40 mg DAILY@06 PO ; Start 11/29/16 at 08:45 SALEEM LEWIS MD Nov 29, 2016 08:58
[2016-11-29] MEDS: PANTOPRAZOLE (EC) 40 MG TAB PO SCH (10:38)
[2016-11-29] MEDS: COLCHICINE 0.6 MG TAB PO SCH (10:45)
[2016-11-29] MEDS: IBUPROFEN 800 MG TAB PO SCH ×2 (11:58→17:57)
--- NOTE | 2016-11-29 18:36 | CONS ---
Date/Time of Note Date/Time of Note DATE: 11/29/16 TIME: 18:35 Assessment/Plan Assessment/Plan Chief Complaint/Hosp Course ANEMIA WITH DROP OF H/H DURING HOSPITALIZATION MONITOR COUNT CLOSELY OBSERVE FOR BLEEDING AND HEMOLYSIS PRBC NEEDED Acute pericarditis- s/p pericardicentesis Pleurisy with possible polyserositis s/p pericardiocentesis with 700mL removed 11/28. Serosanguineous and concerning for possible malignancy. Awaiting cytology DM type 2- corrected by diet HTN LBP- with spinal stenosis Dyslipidemia Memory impairment PTSD BPH LORENZO Osteoporosis Dizziness Major depression Weight loss Hx of having 1 degree AV block Recurrent pneumonias Low vit "D" level Problems: Consultation Date/Type/Reason Admit Date/Time Initial Consult Date 11/28/16 Type of Consultation: hemeon Referring Provider: RUBI DELGADO DO 24 HR Interval Summary Free Text/Dictation ALL NOTED CYTOLOGY- P Exam/Review of Systems Vital Signs Vitals Vital Signs Date Time Temp Pulse Resp B/P Pulse Ox O2 Delivery O2 Flow Rate FiO2 11/29/16 16:00 Simple Mask 10.0 11/29/16 16:00 55 11/29/16 16:00 98.7 17 105/65 96 Intake and Output 11/28/16 11/28/16 11/29/16 15:00 23:00 07:00 Intake Total 360 ml 650 ml 100 ml Output Total 1080 ml 10 ml 210 ml Balance -720 ml 640 ml -110 ml Exam Constitutional: alert, frail, oriented, well developed, No distress, No non-verbal, No obese, No other Psych: anxiety, confusion, depression, nl mood/affect, No no complaints, No other, No suicidal Head: atraumatic, normocephalic Eyes: EOMI, PERRL, nl lids, No fundi, disc, No icteric, No nl conjunctiva, No nl sclera, No other ENMT: nl nasal mucosa & septum, No intubated, No mucosa pink and moist, No nl external ears & nose, No nl lips & teeth, No other, No tympanic membranes Neck: bruits, jvd, No masses, No non-tender, No nuchal rigidity, No other, No supple, No thyromegaly Respiratory: congested cough, diminished breath sounds, normal air movement, No clear to auscultation, No crackles/rales, No intercostal retraction, No labored breathing, No other, No respirations, No tactile fremitus, No wheezing Cardiovascular: bruits, nl pulses, other (Pericardocentesis catheter in place. No crepitations. 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 (decreased hearing.), confused, nl mental status, nl speech, nl strength, numbness, No DTR's symmetric, No focal weakness, No lethargic, No other, No reflexes, No unresponsive Skin: nl turgor, No diaphoresis, No ecchymosis, No laceration, No other, No puncture, No rash or lesions Results Result Diagram: 11/28/1652111/27/162048 Medications Medications Current Medications Acetaminophen 650 mg 650 mg Q6H PRN ID PAIN; Start 11/28/16 at 00:00 Sodium Chloride (NS) 1,000 ml @ 0 mls/hr Q0M IV ; Start 11/28/16 at 00:00 Colchicine (Colchicine) 0.6 mg BID PO Last administered on 11/29/16 10:45; Admin Dose 0.6 MG; Start 11/28/16 at 10:30 Morphine Sulfate 2 mg 2 mg Q4H PRN IV PAIN Last administered on 11/29/16 03:18 ; Admin Dose 2 MG; Start 11/28/16 at 09:30 Cefepime HCl 50 ml @ 100 mls/hr Q12 IVPB Last administered on 11/29/16 08:36; Admin Dose 100 MLS/HR; Start 11/28/16 at 11:30 Doxycycline Hyclate/Sodium Chloride (Vibramycin/NS) 250 ml @ 250 mls/hr Q12 IVPB Last administered on 11/29/16 08:39; Admin Dose 250 MLS/HR; Start at 11:30 Pantoprazole (Protonix Tab) 40 mg DAILY@06 PO Last administered on 11/29/16 10: 38; Admin Dose 40 MG; Start 11/29/16 at 08:45 FILEMON REIS MD Nov 29, 2016 18:36
[2016-11-29 19:59] LABS: RETICULOCYTE COUNT % 1.7 % (0.5-1.5)
[2016-11-29 20:17] LABS: IRON 21 ug/dl (35-150); URIC ACID 3.8 mg/dl (3.1-7.9)
[2016-11-29 20:26] LABS: TOTAL IRON BINDING CAPACITY 227 ug/dl (241-421)
[2016-11-29 20:49] LABS: THYROID STIMULATING HORMONE 1.1 MIU/L (0.465-4.680)
[2016-11-29 20:53] LABS: CARCINOEMBRYONIC ANTIGEN 2.3 ng/ml (0.0-5.0)
[2016-11-29 21:24] LABS: FOLATE 11.7 ng/ml (2.8-20.0)
[2016-11-30] VITALS (24 sets, daily range): BP systolic 98–141; BP diastolic 61–99; PULSE 51–72; RESP 15–25
[2016-11-30] MEDS: COLCHICINE 0.6 MG TAB PO SCH ×3 (00:15→20:49)
[2016-11-30] MEDS: PANTOPRAZOLE (EC) 40 MG TAB PO SCH (05:57)
--- NOTE | 2016-11-30 07:43 | PN ---
Date/Time of Note Date/Time of Note DATE: 11/30/16 TIME: 07:33 Assessment/Plan VTE Prophylaxis VTE Prophylaxis Intervention: ambulation VTE Contraindication Reason: peripheral vascular disease Lines/Catheters IV Catheter Type (from Nrsg): Peripheral IV Central line still needed: No Urinary Cath still in place: No Reason Cath still needed: urinary retention Assessment/Plan Assessment/Plan 1.Acute pericarditis- s/p pericardocentesis- no more d/c. 2.DM type 2- corrected by diet 3.HTN- now hypotensive 4.LBP- with spinal stenosis 5.Dyslipidemia 6.Memory impairment 7.PTSD 8.BPH 9.LOREZNO 10.Osteoporosis 11.Dizziness 12.Major depression 13.Weight loss 14.Hx of having 1 degree AV block- now bradycardic 50-51. 15.Recurrent pneumonias- in the past 16. Low vit "D" level 17.Pleurisy with possible polyserositis- right pleural effusion 18.Low iron with h/h . Cont'd Hospitalization Reason: pricarditis Subjective 24 Hr Interval Summary Free Text/Dictation When I am laying down I am ok. Yesterday I walked well. After walking the cp and sob got worse.It took 20-30 minutes until I felt improvement. Now I have no cp. No f/c; No n/v. I got my meal. Positive for passing gases. Subjective hx not possible: pt critical Constitutional: diaphoresis, requiring O2, No chills, No disoriented, No febrile, No improved, No no complaints, No other, No poor po, No requiring IVF Eyes: redness, No discharge, No no complaints, No other, No pain, No visual change ENT: No bleeding, No congestion, No discharge, No dysphagia, No no complaints, No other, No pain, No sore throat Respiratory: shortness of breath, No cough, No no complaints, No other, No pain, No pleuritic pain, No sputum, No wheezing Cardiovascular: chest pain (not now.), lightheadedness, palpitations ( decresed heart gloria.), No edema, No no complaints, No orthopenea, No other, No paroxysmal nocturnal dyspnea Gastrointestinal: constipation, No blood, No decreased appetite, No diarrhea, No flatus, No nausea, No no complaints, No other, No pain, No passing stool, No vomiting Genitourinary: dysuria, No bleeding, No discharge, No flank pain, No hematuria, No no complaints, No other Musculoskeletal: back pain, bone/joint pain, neck pain, No no complaints, No other, No restricted range of motion, No swelling Neurologic: No confusion, No dizziness, No focal-weakness, No headache, No no complaints, No other, No seizure, No syncope Endocrine: No dry skin, No no complaints, No other, No polydypsia, No polyuria , No temp intolerance Lymphatic: No adenopathy, No lymphadema, No no complaints, No other, No tender nodes Psychological: anxiety, No confusion, No depression, No nl mood/affect, No no complaints, No other, No suicidal Exam/Review of Systems Vital Signs Vitals Vital Signs Date Time Temp Pulse Resp B/P Pulse Ox O2 Delivery O2 Flow Rate FiO2 11/30/16 05:00 51 16 107/61 93 Nasal Cannula 4.0 11/30/16 04:00 98.2 Intake and Output 11/29/16 11/29/16 11/30/16 15:00 23:00 07:00 Intake Total 720 ml 520 ml 400 ml Output Total 580 ml 400 ml 200 ml Balance 140 ml 120 ml 200 ml Exam Constitutional: alert, frail, oriented, well developed, No distress, No non-verbal, No obese, No other Psych: anxiety, no complaints (for now.), No confusion, No depression, No nl mood/affect, No other, No suicidal Head: atraumatic, normocephalic, No hematomas, No lacerations, No other Eyes: EOMI, PERRL, nl conjunctiva (erythematose.), nl lids ENMT: nl external ears & nose, nl lips & teeth, nl nasal mucosa & septum, No intubated, No mucosa pink and moist, No other, No tympanic membranes Neck: bruits, jvd, nuchal rigidity, No masses, No non-tender, No other, No supple, No thyromegaly Respiratory: clear to auscultation, congested cough, diminished breath sounds, normal air movement Cardiovascular: bruits, regular rate and rhythm (decreased rhythm.), systolic murmur, No S3, No S4, No diastolic murmur, No edema, No gallop, No irregular rhythm, No jugular venous distention (JVD), No murmurs/extra sounds, No nl pulses, No other, No rub Gastrointestinal: non-tender, soft, No ascites, No bowel sounds, No distended, No firm, No hepatomegaly, No mass , No nl liver, spleen, No other, No rebound or guarding, No splenomegaly, No surgical scars, No tender Genitourinary - Male: nl penis, nl scrotum Musculoskeletal: joint tenderness, muscle tone, No muscle weakness, No nl extremities to inspection, No nl gait and stance, No other, No range of motion, No spine non-tender, No swelling Extremities: tenderness, No calf tenderness, No clubbing, No cyanosis, No edema, No normal pulses, No other, No palpable cord, No pitting pedal edema Neurological: confused, nl mental status, nl speech, numbness, No SIZE STAMPER II-XII intact, No DTR's symmetric, No focal weakness, No lethargic, No nl strength, No other, No reflexes, No unresponsive Skin: ecchymosis, nl turgor, No diaphoresis, No laceration, No other, No puncture, No rash or lesions Results Result Diagram: 11/28/1652111/27/162048 Results 24 hrs Laboratory Tests Test 11/29/16 19:51 Erythrocyte Sedimentation Rate 58 H Absolute Reticulocyte Count 0.066 Percent Reticulocyte Count 1.7 H Uric Acid 3.8 Iron Level 21 L Total Iron Binding Capacity 227 L Percent Iron Saturation 9 L Ferritin 217.0 Carcinoembryonic Antigen 2.3 Vitamin B12 Level 695 Folate 11.7 Thyroid Stimulating Hormone (TSH) 1.100 Medications Medications Current Medications Acetaminophen 650 mg 650 mg Q6H PRN [place] PAIN; Start 11/28/16 at 00:00 Sodium Chloride (NS) 1,000 ml @ 0 mls/hr Q0M IV ; Start 11/28/16 at 00:00 Colchicine (Colchicine) 0.6 mg BID PO Last administered on 11/30/16 00:15; Admin Dose 0.6 MG; Start 11/28/16 at 10:30 Morphine Sulfate 2 mg 2 mg Q4H PRN IV PAIN Last administered on 11/29/16 03:18 ; Admin Dose 2 MG; Start 11/28/16 at 09:30 Cefepime HCl 50 ml @ 100 mls/hr Q12 IVPB Last administered on 11/29/16 21:16; Admin Dose 100 MLS/HR; Start 11/28/16 at 11:30 Doxycycline Hyclate/Sodium Chloride (Vibramycin/NS) 250 ml @ 250 mls/hr Q12 IVPB Last administered on 11/29/16 21:17; Admin Dose 250 MLS/HR; Start at 11:30 Pantoprazole (Protonix Tab) 40 mg DAILY@06 PO Last administered on 11/30/16 05: 57; Admin Dose 40 MG; Start 11/29/16 at 08:45 SALEEM LEWIS MD Nov 30, 2016 07:42
[2016-11-30] MEDS: CEFEPIME 1GM/50 ML (PMX) 50 ML IVPB SCH ×2 (08:03→20:49)
[2016-11-30] MEDS: IBUPROFEN 800 MG TAB PO SCH ×3 (08:03→18:16)
[2016-11-30] MEDS: DOXYCYCLINE 100 MG in SOD CHLORIDE 0.9% 250 ML IVPB SCH ×2 (08:05→20:49)
--- NOTE | 2016-11-30 10:19 | CONS ---
Date/Time of Note Date/Time of Note DATE: 11/30/16 TIME: 10:13 Consult Date/Type/Reason Admit Date/Time Nov 28, 2016 at 23:55 Initial Consult Date 11/28/16 Type of Consultation: pulm Ordering Provider: RUBI DELGADO DO Subjective Experience chest pain shortness of breath following ambulation yesterday symptoms resolved after 30 minutes. This morning he states he feels better. Objective Vital Signs Date Time Temp Pulse Resp B/P Pulse Ox O2 Delivery O2 Flow Rate FiO2 11/30/16 09:00 70 20 126/95 96 Nasal Cannula 2.0 11/30/16 08:00 98.0 Intake and Output 11/29/16 11/29/16 11/30/16 14:59 22:59 06:59 Intake Total 600 ml 640 ml 400 ml Output Total 580 ml 400 ml 200 ml Balance 20 ml 240 ml 200 ml Exam PHYSICAL EXAMINATION: GENERAL: Well-nourished well developed gentleman comfortable at rest VITAL SIGNS: NECK: Supple. No JVD. No lymphadenopathy. HEART: S1, S2. No added sounds or murmurs. CHEST: Diminished air entry bilaterally. ABDOMEN: Soft, nontender. No guarding or rebound. EXTREMITIES: No cyanosis, clubbing. Edema plus 2. NEUROLOGIC: Generalized weakness. Results/Medications Result Diagram: 11/28/1652111/27/162048 Results 24 hrs Laboratory Tests Test 11/29/16 19:51 Erythrocyte Sedimentation Rate 58 H Absolute Reticulocyte Count 0.066 Percent Reticulocyte Count 1.7 H Uric Acid 3.8 Iron Level 21 L Total Iron Binding Capacity 227 L Percent Iron Saturation 9 L Ferritin 217.0 Carcinoembryonic Antigen 2.3 Vitamin B12 Level 695 Folate 11.7 Thyroid Stimulating Hormone (TSH) 1.100 Medications Current Medications Acetaminophen 650 mg 650 mg Q6H PRN [place] PAIN; Start 11/28/16 at 00:00 Sodium Chloride (NS) 1,000 ml @ 0 mls/hr Q0M IV ; Start 11/28/16 at 00:00 Colchicine (Colchicine) 0.6 mg BID PO Last administered on 11/30/16 08:03; Admin Dose 0.6 MG; Start 11/28/16 at 10:30 Morphine Sulfate 2 mg 2 mg Q4H PRN IV PAIN Last administered on 11/29/16 03:18 ; Admin Dose 2 MG; Start 11/28/16 at 09:30 Cefepime HCl 50 ml @ 100 mls/hr Q12 IVPB Last administered on 11/30/16 08:03; Admin Dose 100 MLS/HR; Start 11/28/16 at 11:30 Doxycycline Hyclate/Sodium Chloride (Vibramycin/NS) 250 ml @ 250 mls/hr Q12 IVPB Last administered on 11/30/16 08:05; Admin Dose 250 MLS/HR; Start at 11:30 Pantoprazole 40 mg 40 mg DAILY@06 PO Last administered on 11/30/16 05:57; Admin Dose 40 MG; Start 11/29/16 at 08:45 Ferric Sodium Gluconate Complex/ Sodium Chloride (Ferrlecit/NS) 110 ml @ 100 mls/hr Q24H IVPB ; Start 11/30/16 at 10:00; Stop 12/02/16 at 11:05 Assessment/Plan Chief Complaint/Hosp Course Assessment 1. Pericardial effusion status post pericardiocentesis 2. History of first-degree heart block 3. History of remote tobacco use 4. Stable chronic anemia 5. Hypoxemia secondary to underlying COPD and pericardial effusion. Plan 1. Await cytology results. 2. Supplemental O2 as needed 3. Cardiac recommendations 4. Encourage out of bed as tolerated Critical care time 40 minutes. Problems: [facility]O HAQUE [facility] Nov 30, 2016 10:19
[2016-11-30] MEDS: SOD FERRIC GLUC COMPLX 125 MG in SOD CHLORIDE 0.9% 100 ML IVPB SCH (10:21)
[2016-11-30 10:51] LABS: CYTOMEGALOVIRUS ANTIBODY (IGM) <30.00 AU/mL
--- NOTE | 2016-11-30 17:17 | CONS ---
Date/Time of Note Date/Time of Note DATE: 11/30/16 TIME: 17:15 Assessment/Plan Assessment/Plan Chief Complaint/Hosp Course Large pericardial effusion: s/p pericardiocentesis with 700mL removal 11/28, pericardial drain discontinued 11/30/2016. Serosanguinous and concerning for possible malignancy. Awaiting cytology Acute diastolic heart failure: due to above. Improved Chest/abdominal pain: from pericarditis DM HTN HL -repeat echocardiogram 11/29/2016 with only small residual pericardial effusion -pericardial drain has been discontinued -continue colchicine 0.6mg BID -continue ibuprofen 800mg TID and pantoprazole -f/u cultures, cytology Problems: Consultation Date/Type/Reason Admit Date/Time Nov 28, 2016 at 23:55 Initial Consult Date 11/28/16 Type of Consultation: Cardiology 24 HR Interval Summary Free Text/Dictation Reported to have chest pain and shortness of breath yesterday with ambulation, now resolved. Patient reports still having some chest pain with deep respiratory inspiration. Small residual pericardial effusion on repeat cardiogram yesterday. Pericardial drain with no further drainage over past 24 hours. Detailed Summary Additional Comments 14 point review of systems without changes. Exam/Review of Systems Vital Signs Vitals Vital Signs Date Time Temp Pulse Resp B/P Pulse Ox O2 Delivery O2 Flow Rate FiO2 11/30/16 16:00 58 11/30/16 13:00 22 106/69 98 Nasal Cannula 2.0 11/30/16 12:30 98.2 Intake and Output 11/29/16 11/29/16 11/30/16 15:00 23:00 07:00 Intake Total 720 ml 520 ml 400 ml Output Total 580 ml 400 ml 200 ml Balance 140 ml 120 ml 200 ml Results Result Diagram: 11/28/16 0522 11/27/16 2049 Results 24 hrs Laboratory Tests Test 11/29/16 19:51 Erythrocyte Sedimentation Rate 58 H Absolute Reticulocyte Count 0.066 Percent Reticulocyte Count 1.7 H Uric Acid 3.8 Iron Level 21 L Total Iron Binding Capacity 227 L Percent Iron Saturation 9 L Ferritin 217.0 Carcinoembryonic Antigen 2.3 Vitamin B12 Level 695 Folate 11.7 Thyroid Stimulating Hormone (TSH) 1.100 Medications Medications Current Medications Acetaminophen 650 mg 650 mg Q6H PRN [place] PAIN; Start 11/28/16 at 00:00 Sodium Chloride (NS) 1,000 ml @ 0 mls/hr Q0M IV ; Start 11/28/16 at 00:00 Colchicine (Colchicine) 0.6 mg BID PO Last administered on 11/30/16 08:03; Admin Dose 0.6 MG; Start 11/28/16 at 10:30 Morphine Sulfate 2 mg 2 mg Q4H PRN IV PAIN Last administered on 11/29/16 03:18 ; Admin Dose 2 MG; Start 11/28/16 at 09:30 Cefepime HCl 50 ml @ 100 mls/hr Q12 IVPB Last administered on 11/30/16 08:03; Admin Dose 100 MLS/HR; Start 11/28/16 at 11:30 Doxycycline Hyclate/Sodium Chloride (Vibramycin/NS) 250 ml @ 250 mls/hr Q12 IVPB Last administered on 11/30/16 08:05; Admin Dose 250 MLS/HR; Start at 11:30 Pantoprazole 40 mg 40 mg DAILY@06 PO Last administered on 11/30/16 05:57; Admin Dose 40 MG; Start 11/29/16 at 08:45 Ferric Sodium Gluconate Complex/ Sodium Chloride (Ferrlecit/NS) 110 ml @ 100 mls/hr Q24H IVPB Last administered on 11/30/16 10:21; Admin Dose 100 MLS/HR; Start 11/30/16 at 10:00; Stop 12/02/16 at 11:05 TRACY PEARCE MD Nov 30, 2016 17:17
--- NOTE | 2016-11-30 17:23 | RADRPT ---
Echocardiogram Report Patient Name: JOSE MANUEL PAREKH Gender: Male Date: 1940 Study Date: 29-Nov-2016 Databases Computer Consultant: Marielos Cerda RDCS Location: [id number] Ref. Physician: PAUL MCKEON Quality: Good Procedures: Transthoracic echocardiogram examination. Indications: Pericardial Effusion. Findings Pericardium: Small pericardial effusion. Left pleural effusion seen. Conclusions 1.Small residual pericardial effusion. Electronically Signed By: Hudson Davison 30-Nov-2016 17:22:46 -0700 Patient Name: JOSE MANUEL PAREKH Study Date: 29-Nov-[id number]
--- NOTE | 2016-11-30 18:56 | CONS ---
Date/Time of Note Date/Time of Note DATE: 11/30/16 TIME: 18:56 Assessment/Plan Assessment/Plan Chief Complaint/Hosp Course ANEMIA WITH DROP OF H/H DURING HOSPITALIZATION MONITOR COUNT CLOSELY OBSERVE FOR BLEEDING AND HEMOLYSIS PRBC NEEDED Acute pericarditis- s/p pericardicentesis Pleurisy with possible polyserositis s/p pericardiocentesis with 700mL removed 11/28. Serosanguineous and concerning for possible malignancy. Awaiting cytology DM type 2- corrected by diet HTN LBP- with spinal stenosis Dyslipidemia Memory impairment PTSD BPH LORENZO Osteoporosis Dizziness Major depression Weight loss Hx of having 1 degree AV block Recurrent pneumonias Low vit "D" level Problems: Consultation Date/Type/Reason Admit Date/Time Nov 28, 2016 at 23:55 Initial Consult Date 11/28/16 Type of Consultation: hemeonc 24 HR Interval Summary Free Text/Dictation + chest pain + shortness of breath NOW feels better. H/H- NOTED NO BLEEDING Exam/Review of Systems Vital Signs Vitals Vital Signs Date Time Temp Pulse Resp B/P Pulse Ox O2 Delivery O2 Flow Rate FiO2 11/30/16 18:00 70 21 141/78 97 Nasal Cannula 2.0 11/30/16 16:00 98.7 Intake and Output 11/29/16 11/29/16 11/30/16 15:00 23:00 07:00 Intake Total 720 ml 520 ml 400 ml Output Total 580 ml 400 ml 200 ml Balance 140 ml 120 ml 200 ml Exam Constitutional: alert, frail, oriented, well developed, No distress, No non-verbal, No obese, No other Psych: anxiety, confusion, depression, nl mood/affect, No no complaints, No other, No suicidal Head: atraumatic, normocephalic Eyes: EOMI, PERRL, nl lids, No fundi, disc, No icteric, No nl conjunctiva, No nl sclera, No other ENMT: nl nasal mucosa & septum, No intubated, No mucosa pink and moist, No nl external ears & nose, No nl lips & teeth, No other, No tympanic membranes Neck: bruits, jvd, No masses, No non-tender, No nuchal rigidity, No other, No supple, No thyromegaly Respiratory: congested cough, diminished breath sounds, normal air movement, No clear to auscultation, No crackles/rales, No intercostal retraction, No labored breathing, No other, No respirations, No tactile fremitus, No wheezing Cardiovascular: bruits, nl pulses, other (Pericardocentesis catheter in place. No crepitations. No hematomas.), regular rate and rhythm, No S3, No S4, No diastolic murmur, No edema, No gallop, No irregular rhythm, No jugular venous distention (JVD), No murmurs/extra sounds, No rub, No systolic murmur Gastrointestinal: nl liver, spleen, soft, No ascites, No bowel sounds, No distended, No firm, No hepatomegaly, No mass , No non-tender, No other, No rebound or guarding, No splenomegaly, No surgical scars, No tender Musculoskeletal: joint tenderness, muscle tone, muscle weakness Neurological: NON DESTRUCTIVE TESTING TECHNICIAN II-XII intact (decreased hearing.), confused, nl mental status, nl speech, nl strength, numbness, No DTR's symmetric, No focal weakness, No lethargic, No other, No reflexes, No unresponsive Skin: nl turgor, No diaphoresis, No ecchymosis, No laceration, No other, No puncture, No rash or lesions Results Result Diagram: 11/28/1652111/27/162048 Results 24 hrs Laboratory Tests Test 11/29/16 19:51 Erythrocyte Sedimentation Rate 58 H Absolute Reticulocyte Count 0.066 Percent Reticulocyte Count 1.7 H Uric Acid 3.8 Iron Level 21 L Total Iron Binding Capacity 227 L Percent Iron Saturation 9 L Ferritin 217.0 Carcinoembryonic Antigen 2.3 Vitamin B12 Level 695 Folate 11.7 Thyroid Stimulating Hormone (TSH) 1.100 Medications Medications Current Medications Acetaminophen 650 mg 650 mg Q6H PRN [place] PAIN; Start 11/28/16 at 00:00 Sodium Chloride (NS) 1,000 ml @ 0 mls/hr Q0M IV ; Start 11/28/16 at 00:00 Colchicine (Colchicine) 0.6 mg BID PO Last administered on 11/30/16 08:03; Admin Dose 0.6 MG; Start 11/28/16 at 10:30 Morphine Sulfate 2 mg 2 mg Q4H PRN IV PAIN Last administered on 11/29/16 03:18 ; Admin Dose 2 MG; Start 11/28/16 at 09:30 Cefepime HCl 50 ml @ 100 mls/hr Q12 IVPB Last administered on 11/30/16 08:03; Admin Dose 100 MLS/HR; Start 11/28/16 at 11:30 Doxycycline Hyclate/Sodium Chloride (Vibramycin/NS) 250 ml @ 250 mls/hr Q12 IVPB Last administered on 11/30/16 08:05; Admin Dose 250 MLS/HR; Start at 11:30 Pantoprazole 40 mg 40 mg DAILY@06 PO Last administered on 11/30/16 05:57; Admin Dose 40 MG; Start 11/29/16 at 08:45 Ferric Sodium Gluconate Complex/ Sodium Chloride (Ferrlecit/NS) 110 ml @ 100 mls/hr Q24H IVPB Last administered on 11/30/16 10:21; Admin Dose 100 MLS/HR; Start 11/30/16 at 10:00; Stop 12/02/16 at 11:05 FILEMON REIS MD Nov 30, 2016 18:56
[2016-12-01] VITALS (21 sets, daily range): BP systolic 100–147; BP diastolic 60–92; PULSE 51–85; RESP 13–26
[2016-12-01] MEDS: PANTOPRAZOLE (EC) 40 MG TAB PO SCH (06:01)
[2016-12-01] MEDS: COLCHICINE 0.6 MG TAB PO SCH ×2 (08:34→20:53)
[2016-12-01] MEDS: CEFEPIME 1GM/50 ML (PMX) 50 ML IVPB SCH ×2 (08:34→20:49)
[2016-12-01] MEDS: IBUPROFEN 800 MG TAB PO SCH ×4 (08:34→20:53)
[2016-12-01] MEDS: DOXYCYCLINE 100 MG in SOD CHLORIDE 0.9% 250 ML IVPB SCH ×2 (09:30→20:52)
[2016-12-01 09:51] LABS: BASOPHILS % 0.3 % (0.0-2.0); EOSINOPHILS # 0.1 10^3/ul (0.0-0.5); HEMATOCRIT 40.5 % (42.0-52.0); HEMOGLOBIN 13.7 g/dl (14.0-18.0); LYMPHOCYTES # 1.2 10^3/ul (0.8-2.9); LYMPHOCYTES % 19.4 % (15.0-51.0); MEAN CORPUSCULAR HEMOGLOBIN 30.4 pg (29.0-33.0); MEAN CORPUSCULAR HGB CONC 33.8 g/dl (32.0-37.0); MEAN CORPUSCULAR VOLUME 89.8 fl (82.0-101.0); MEAN PLATELET VOLUME 8.8 fl (7.4-10.4); MONOCYTE # 0.6 10^3/ul (0.3-0.9); MONOCYTES % 9.7 % (0.0-11.0); NEUTROPHILS % 68.1 % (39.0-77.0); PLATELET COUNT 274 10^3/UL (140-415); RED BLOOD COUNT 4.51 10^6/ul (4.70-6.10); RED CELL DISTRIBUTION WIDTH 12.2 % (11.5-14.5); WHITE BLOOD COUNT 6.4 10^3/ul (4.8-10.8)
--- NOTE | 2016-12-01 09:52 | RADRPT ---
PROCEDURE: XR Chest. CLINICAL INDICATION: PERICARDIAL EFFUSION, PNA TECHNIQUE: Single frontal view of the chest was obtained COMPARISON: Chest x-ray 11/28/2016 FINDINGS: The previously seen pigtail catheter which projected over the left inferior hemithorax is no longer visualized. The cardiac silhouette remains enlarged, not significantly changed. There are atherosclerotic calcifications of the thoracic aorta. There are increased ill-defined opacities at the left lung base which may represent a new small left pleural effusion with adjacent atelectasis and / or infiltrate. There is new mild blunting of the r ight costophrenic angle, suggestive of a trace right pleural effusion. Pulmonary vascular congestion appears decreased. No pneumothorax is identified. There are degenerative changes of the visualized spine. IMPRESSION: 1. Interval removal of previously seen pigtail catheter projecting over the left lower hemithorax. 2. Interval increase in ill-defined opacities at the left lung base, suspicious for new small left pleural effusion with adjacent atelectasis and / or consolidation. 3. New trace right pleural effusion. 4. Decreased pulmonary vascular congestion. 5. Persistently enlarged cardiac silhouette, unchanged. 6. Thoracic aortic atherosclerotic disease. RPTAT: HR[facility] Physician Christiano Date Time Electronically viewed and signed by Physician Christiano on 12/01/2016 09:52 /
[2016-12-01 10:20] LABS: CALCIUM 8.5 mg/dl (8.4-10.2); CREATININE 0.73 mg/dl (0.61-1.24); MAGNESIUM 1.7 mg/dl (1.7-2.5); PHOSPHORUS 2.9 mg/dl (2.5-4.9)
[2016-12-01] MEDS: SOD FERRIC GLUC COMPLX 125 MG in SOD CHLORIDE 0.9% 100 ML IVPB SCH (11:27)
--- NOTE | 2016-12-01 12:45 | CONS ---
Date/Time of Note Date/Time of Note DATE: 12/01/16 TIME: 12:45 Consult Date/Type/Reason Admit Date/Time Nov 28, 2016 at 23:55 Initial Consult Date 11/28/16 Type of Consultation: Pulmonary Subjective Patient comfortable this morning sitting up in chair. Denies chest pain or shortness of breath. Pericardial drain is been removed. Patient remains hemodynamically stable. Objective Vital Signs Date Time Temp Pulse Resp B/P Pulse Ox O2 Delivery O2 Flow Rate FiO2 12/01/16 12:00 98.1 54 15 141/92 100 Nasal Cannula 2.0 Intake and Output 11/30/16 11/30/16 12/01/16 15:00 23:00 07:00 Intake Total 800 ml 600 ml Output Total 800 ml 100 ml 750 ml Balance 0 ml 500 ml -750 ml Exam PHYSICAL EXAMINATION: GENERAL: Well-nourished well developed gentleman comfortable at rest VITAL SIGNS: NECK: Supple. No JVD. No lymphadenopathy. HEART: S1, S2. No added sounds or murmurs. CHEST: Diminished air entry bilaterally. ABDOMEN: Soft, nontender. No guarding or rebound. EXTREMITIES: No cyanosis, clubbing. Edema plus 2. NEUROLOGIC: Generalized weakness. Results/Medications Result Diagram: 12/01/16 0912/01/16 0906 Results 24 hrs Laboratory Tests Test 12/01/16 09:05 12/01/16 09:06 White Blood Count 6.4 Red Blood Count 4.51 #L Hemoglobin 13.7 #L Hematocrit 40.5 #L Mean Corpuscular Volume 89.8 Mean Corpuscular Hemoglobin 30.4 Mean Corpuscular Hemoglobin Concent 33.8 Red Cell Distribution Width 12.2 Platelet Count 274 Mean Platelet Volume 8.8 Neutrophils % 68.1 Lymphocytes % 19.4 Monocytes % 9.7 Eosinophils % 2.0 Basophils % 0.3 Nucleated Red Blood Cells % 0.0 Neutrophils # (Manual) 4.4 Lymphocytes # 1.2 Monocytes # 0.6 Eosinophils # 0.1 Basophils # 0.0 Nucleated Red Blood Cells # 0.0 Sodium Level 140 Potassium Level 4.0 Chloride Level 106 Carbon Dioxide Level 26 Anion Gap 12 Blood Urea Nitrogen 16 Creatinine 0.73 Glucose Level 141 Calcium Level 8.5 Phosphorus Level 2.9 Magnesium Level 1.7 Medications Current Medications Acetaminophen 650 mg 650 mg Q6H PRN [place] PAIN; Start 11/28/16 at 00:00 Sodium Chloride (NS) 1,000 ml @ 0 mls/hr Q0M IV ; Start 11/28/16 at 00:00 Colchicine (Colchicine) 0.6 mg BID PO Last administered on 12/01/16 08:34; Admin Dose 0.6 MG; Start 11/28/16 at 10:30 Morphine Sulfate 2 mg 2 mg Q4H PRN IV PAIN Last administered on 11/29/16 03:18 ; Admin Dose 2 MG; Start 11/28/16 at 09:30 Cefepime HCl 50 ml @ 100 mls/hr Q12 IVPB Last administered on 12/01/16 08:34; Admin Dose 100 MLS/HR; Start 11/28/16 at 11:30 Doxycycline Hyclate/Sodium Chloride (Vibramycin/NS) 250 ml @ 250 mls/hr Q12 IVPB Last administered on 12/01/16 09:30; Admin Dose 250 MLS/HR; Start at 11:30 Pantoprazole 40 mg 40 mg DAILY@06 PO Last administered on 12/01/16 06:01; Admin Dose 40 MG; Start 11/29/16 at 08:45 Ferric Sodium Gluconate Complex/ Sodium Chloride (Ferrlecit/NS) 110 ml @ 100 mls/hr Q24H IVPB Last administered on 12/01/16 11:27; Admin Dose 100 MLS/HR; Start 11/30/16 at 10:00; Stop 12/02/16 at 11:05 Assessment/Plan Chief Complaint/Hosp Course Assessment 1. Pericardial effusion status post pericardiocentesis 2. History of first-degree heart block 3. History of remote tobacco use 4. Stable chronic anemia 5. Hypoxemia secondary to underlying COPD and pericardial effusion. Plan 1. Await cytology results. 2. Supplemental O2 as needed 3. Cardiac recommendations 4. Encourage out of bed as tolerated Stable for transfer to telemetry from pulmonary standpoint. Problems: YO HAQUE [facility] Dec 01, 2016 12:45
--- NOTE | 2016-12-01 20:00 | PN ---
Date/Time of Note Date/Time of Note DATE: 12/01/16 TIME: 19:54 Assessment/Plan VTE Prophylaxis VTE Prophylaxis Intervention: ambulation, anti-embolic stocking VTE Contraindication Reason: peripheral vascular disease Lines/Catheters IV Catheter Type (from Nrsg): Saline Lock Central line still needed: No Urinary Cath still in place: No Reason Cath still needed: urinary retention Assessment/Plan Assessment/Plan 1.Acute pericarditis- s/p pericardiocentesis- tube removed. 2.DM type 2- corrected by diet 3.HTN- now hypotensive 4.LBP- with spinal stenosis 5.Dyslipidemia 6.Memory impairment 7.PTSD 8.BPH 9.LORENZO 10.Osteoporosis 11.Dizziness 12.Major depression 13.Weight loss 14.Hx of having 1 degree AV block- now bradycardic 50-51. 15.Recurrent pneumonias- in the past 16. Low vit "D" level 17.Pleurisy with possible polyserositis- right pleural effusion 18.Low iron with h/h - today 19.Low magnesium 20.Positive serologic tests for AG of CMV; EBV- others are pending. 21.Bradycardia. Cont'd Hospitalization Reason: pleurisy Subjective 24 Hr Interval Summary Free Text/Dictation I feel better. sob and pain improved but present. No f/c; no n/v. Subjective hx not possible: other Constitutional: improved, requiring O2, No chills, No diaphoresis, No disoriented, No febrile, No no complaints, No other, No poor po, No requiring IVF Eyes: discharge, No no complaints, No other, No pain, No redness, No visual change ENT: No bleeding, No congestion, No discharge, No dysphagia, No no complaints, No other, No pain, No sore throat Respiratory: shortness of breath, No cough, No no complaints, No other, No pain, No pleuritic pain, No sputum, No wheezing Cardiovascular: chest pain, lightheadedness, orthopenea, No edema, No no complaints, No other, No palpitations, No paroxysmal nocturnal dyspnea Gastrointestinal: constipation, decreased appetite, flatus, passing stool, No blood, No diarrhea, No nausea, No no complaints, No other, No pain, No vomiting Musculoskeletal: back pain, No bone/joint pain, No neck pain, No no complaints, No other, No restricted range of motion, No swelling Neurologic: No confusion, No dizziness, No focal-weakness, No headache, No no complaints, No other, No seizure, No syncope Endocrine: No dry skin, No no complaints, No other, No polydypsia, No polyuria , No temp intolerance Lymphatic: no complaints Psychological: anxiety, No confusion, No depression, No nl mood/affect, No no complaints, No other, No suicidal Exam/Review of Systems Vital Signs Vitals Vital Signs Date Time Temp Pulse Resp B/P Pulse Ox O2 Delivery O2 Flow Rate FiO2 12/01/16 16:45 98.1 60 108/61 96 Nasal Cannula 2.0 12/01/16 16:00 21 Intake and Output 11/30/16 11/30/16 12/01/16 15:00 23:00 07:00 Intake Total 800 ml 600 ml Output Total 800 ml 100 ml 750 ml Balance 0 ml 500 ml -750 ml Exam Constitutional: alert, frail, oriented, No distress, No non-verbal, No obese, No other, No well developed Psych: anxiety, No confusion, No depression, No nl mood/affect, No no complaints, No other, No suicidal Head: No atraumatic, No hematomas, No lacerations, No normocephalic, No other Eyes: EOMI, PERRL, nl conjunctiva (erythematose.), No fundi, disc, No icteric, No nl lids, No nl sclera, No other ENMT: nl lips & teeth, No intubated, No mucosa pink and moist, No nl external ears & nose, No nl nasal mucosa & septum, No other, No tympanic membranes Neck: bruits, jvd, non-tender, nuchal rigidity, supple, No masses, No other, No thyromegaly Respiratory: No clear to auscultation, No congested cough, No crackles/rales, No diminished breath sounds, No intercostal retraction, No labored breathing, No normal air movement, No other, No respirations, No tactile fremitus, No wheezing Cardiovascular: bruits, systolic murmur, No S3, No S4, No diastolic murmur, No edema, No gallop, No irregular rhythm, No jugular venous distention (JVD), No murmurs/extra sounds, No nl pulses, No other, No regular rate and rhythm, No rub Gastrointestinal: bowel sounds, nl liver, spleen, soft, No ascites, No distended, No firm, No hepatomegaly, No mass, No non-tender, No other, No rebound or guarding, No splenomegaly, No surgical scars, No tender Musculoskeletal: joint tenderness, muscle tone, muscle weakness, No nl extremities to inspection, No nl gait and stance, No other, No range of motion, No spine non-tender, No swelling Neurological: APPLICATIONS SCIENTIST II-XII intact, nl mental status, nl speech, numbness, No DTR's symmetric, No confused, No focal weakness, No lethargic, No nl strength, No other, No reflexes, No unresponsive Skin: No diaphoresis, No ecchymosis, No laceration, No nl turgor, No other, No puncture, No rash or lesions Lymph: No enlarged, No nl lymph nodes, No nontender, No other Results Result Diagram: 12/01/1690412/01/16 0906 Results 24 hrs Laboratory Tests Test 12/01/16 09:05 12/01/16 09:06 White Blood Count 6.4 Red Blood Count 4.51 #L Hemoglobin 13.7 #L Hematocrit 40.5 #L Mean Corpuscular Volume 89.8 Mean Corpuscular Hemoglobin 30.4 Mean Corpuscular Hemoglobin Concent 33.8 Red Cell Distribution Width 12.2 Platelet Count 274 Mean Platelet Volume 8.8 Neutrophils % 68.1 Lymphocytes % 19.4 Monocytes % 9.7 Eosinophils % 2.0 Basophils % 0.3 Nucleated Red Blood Cells % 0.0 Neutrophils # (Manual) 4.4 Lymphocytes # 1.2 Monocytes # 0.6 Eosinophils # 0.1 Basophils # 0.0 Nucleated Red Blood Cells # 0.0 Sodium Level 140 Potassium Level 4.0 Chloride Level 106 Carbon Dioxide Level 26 Anion Gap 12 Blood Urea Nitrogen 16 Creatinine 0.73 Glucose Level 141 Calcium Level 8.5 Phosphorus Level 2.9 Magnesium Level 1.7 Medications Medications Current Medications Acetaminophen 650 mg 650 mg Q6H PRN [place] PAIN; Start 11/28/16 at 00:00 Sodium Chloride (NS) 1,000 ml @ 0 mls/hr Q0M IV ; Start 11/28/16 at 00:00 Colchicine (Colchicine) 0.6 mg BID PO Last administered on 12/01/16t 08:34; Admin Dose 0.6 MG; Start 11/28/16 at 10:30 Morphine Sulfate 2 mg 2 mg Q4H PRN [place] PAIN Last administered on 11/29/16 03:18 ; Admin Dose 2 MG; Start 11/28/16 at 09:30 Cefepime HCl 50 ml @ 100 mls/hr Q12 IVPB Last administered on 12/01/16 08:34; Admin Dose 100 MLS/HR; Start 11/28/16 at 11:30 Doxycycline Hyclate/Sodium Chloride (Vibramycin/NS) 250 ml @ 250 mls/hr Q12 IVPB Last administered on 12/01/16 09:30; Admin Dose 250 MLS/HR; Start at 11:30 Pantoprazole 40 mg 40 mg DAILY@06 PO Last administered on 12/01/16 06:01; Admin Dose 40 MG; Start 11/29/16 at 08:45 Ferric Sodium Gluconate Complex/ Sodium Chloride (Ferrlecit/NS) 110 ml @ 100 mls/hr Q24H IVPB Last administered on 12/01/16 11:27; Admin Dose 100 MLS/HR; Start 11/30/16 at 10:00; Stop 12/02/16 at 11:05 SALEEM LEWIS MD Dec 01, 2016 20:00
--- NOTE | 2016-12-01 22:24 | CONS ---
Date/Time of Note Date/Time of Note DATE: 12/01/16 TIME: 22:24 Assessment/Plan Assessment/Plan Chief Complaint/Hosp Course ANEMIA WITH DROP OF H/H DURING HOSPITALIZATION MONITOR COUNT CLOSELY OBSERVE FOR BLEEDING AND HEMOLYSIS PRBC NEEDED CHECK COUNT IN AM Acute pericarditis- s/p pericardicentesis Pleurisy with possible polyserositis s/p pericardiocentesis with 700mL removed 11/28. Serosanguineous and concerning for possible malignancy. Awaiting cytology DM type 2- corrected by diet HTN LBP- with spinal stenosis Dyslipidemia Memory impairment PTSD BPH LORENZO Osteoporosis Dizziness Major depression Weight loss Hx of having 1 degree AV block Recurrent pneumonias Low vit "D" level Problems: Consultation Date/Type/Reason Admit Date/Time Nov 28, 2016 at 23:55 Initial Consult Date 11/28/16 Type of Consultation: hemeonc 24 HR Interval Summary Free Text/Dictation ALL NOTED CYTOLOGY- P Exam/Review of Systems Vital Signs Vitals Vital Signs Date Time Temp Pulse Resp B/P Pulse Ox O2 Delivery O2 Flow Rate FiO2 12/01/16 20:37 98.5 63 18 109/62 95 12/01/16 20:00 Nasal Cannula 2.0 Intake and Output 11/30/16 11/30/16 12/01/16 15:00 23:00 07:00 Intake Total 800 ml 600 ml Output Total 800 ml 100 ml 750 ml Balance 0 ml 500 ml -750 ml Exam Constitutional: alert, frail, oriented, well developed, No distress, No non-verbal, No obese, No other Psych: anxiety, no complaints (for now.), No confusion, No depression, No nl mood/affect, No other, No suicidal Head: atraumatic, normocephalic, No hematomas, No lacerations, No other Eyes: EOMI, PERRL, nl conjunctiva (erythematose.), nl lids ENMT: nl external ears & nose, nl lips & teeth, nl nasal mucosa & septum, No intubated, No mucosa pink and moist, No other, No tympanic membranes Neck: bruits, jvd, nuchal rigidity, No masses, No non-tender, No other, No supple, No thyromegaly Respiratory: clear to auscultation, congested cough, diminished breath sounds, normal air movement Cardiovascular: bruits, regular rate and rhythm (decreased rhythm.), systolic murmur, No S3, No S4, No diastolic murmur, No edema, No gallop, No irregular rhythm, No jugular venous distention (JVD), No murmurs/extra sounds, No nl pulses, No other, No rub Gastrointestinal: non-tender, soft, No ascites, No bowel sounds, No distended, No firm, No hepatomegaly, No mass , No nl liver, spleen, No other, No rebound or guarding, No splenomegaly, No surgical scars, No tender Genitourinary - Male: nl penis, nl scrotum Musculoskeletal: joint tenderness, muscle tone, No muscle weakness, No nl extremities to inspection, No nl gait and stance, No other, No range of motion, No spine non-tender, No swelling Extremities: tenderness, No calf tenderness, No clubbing, No cyanosis, No edema, No normal pulses, No other, No palpable cord, No pitting pedal edema Neurological: confused, nl mental status, nl speech, numbness, No COMMERCIAL CREDIT LEAD II-XII intact, No DTR's symmetric, No focal weakness, No lethargic, No nl strength, No other, No reflexes, No unresponsive Skin: ecchymosis, nl turgor, No diaphoresis, No laceration, No other, No puncture, No rash or lesions Results Result Diagram: 12/01/1690412/01/16 0906 Results 24 hrs Laboratory Tests Test 12/01/16 09:05 12/01/16 09:06 White Blood Count 6.4 Red Blood Count 4.51 #L Hemoglobin 13.7 #L Hematocrit 40.5 #L Mean Corpuscular Volume 89.8 Mean Corpuscular Hemoglobin 30.4 Mean Corpuscular Hemoglobin Concent 33.8 Red Cell Distribution Width 12.2 Platelet Count 274 Mean Platelet Volume 8.8 Neutrophils % 68.1 Lymphocytes % 19.4 Monocytes % 9.7 Eosinophils % 2.0 Basophils % 0.3 Nucleated Red Blood Cells % 0.0 Neutrophils # (Manual) 4.4 Lymphocytes # 1.2 Monocytes # 0.6 Eosinophils # 0.1 Basophils # 0.0 Nucleated Red Blood Cells # 0.0 Sodium Level 140 Potassium Level 4.0 Chloride Level 106 Carbon Dioxide Level 26 Anion Gap 12 Blood Urea Nitrogen 16 Creatinine 0.73 Glucose Level 141 Calcium Level 8.5 Phosphorus Level 2.9 Magnesium Level 1.7 Medications Medications Current Medications Acetaminophen 650 mg 650 mg Q6H PRN [place] PAIN; Start 11/28/16 at 00:00 Sodium Chloride (NS) 1,000 ml @ 0 mls/hr Q0M IV ; Start 11/28/16 at 00:00 Colchicine (Colchicine) 0.6 mg BID PO Last administered on 12/01/16 20:53; Admin Dose 0.6 MG; Start 11/28/16 at 10:30 Morphine Sulfate 2 mg 2 mg Q4H PRN IV PAIN Last administered on 11/29/16 03:18 ; Admin Dose 2 MG; Start 11/28/16 at 09:30 Cefepime HCl 50 ml @ 100 mls/hr Q12 IVPB Last administered on 12/01/16 20:49; Admin Dose 100 MLS/HR; Start 11/28/16 at 11:30 Doxycycline Hyclate/Sodium Chloride (Vibramycin/NS) 250 ml @ 250 mls/hr Q12 IVPB Last administered on 12/01/16 20:52; Admin Dose 250 MLS/HR; Start at 11:30 Pantoprazole 40 mg 40 mg DAILY@06 PO Last administered on 12/01/16 06:01; Admin Dose 40 MG; Start 11/29/16 at 08:45 Ferric Sodium Gluconate Complex 125 mg/Sodium Chloride 110 ml @ 100 mls/hr Q24H IVPB Last administered on 12/01/16 11:27; Admin Dose 100 MLS/HR; Start 11/30/16 at 10:00; Stop 12/02/16 at 11:05 Magnesium Sulfate (Magnesium Sulfate 2 Gm/50 ml) 50 ml @ 25 mls/hr DAILY IVPB ; Start 12/01/16 at 20:00; Stop 12/03/16 at 09:00 FILEMON REIS MD Dec 01, 2016 22:24
[2016-12-01] MEDS: MAGNESIUM SULFATE 2 GM/50 ML 50 ML IVPB SCH (23:36)
[2016-12-02] VITALS (13 sets, daily range): BP systolic 114–146; BP diastolic 60–77; PULSE 60–77; RESP 18–21
[2016-12-02] MEDS: PANTOPRAZOLE (EC) 40 MG TAB PO SCH (05:49)
[2016-12-02 07:15] LABS: BASOPHILS % 0.4 % (0.0-2.0); EOSINOPHILS # 0.2 10^3/ul (0.0-0.5); EOSINOPHILS % 2.8 % (0.0-7.0); HEMATOCRIT 35.6 % (42.0-52.0); HEMOGLOBIN 11.9 g/dl (14.0-18.0); LYMPHOCYTES # 1.5 10^3/ul (0.8-2.9); LYMPHOCYTES % 25.8 % (15.0-51.0); MEAN CORPUSCULAR HEMOGLOBIN 29.5 pg (29.0-33.0); MEAN CORPUSCULAR HGB CONC 33.4 g/dl (32.0-37.0); MEAN CORPUSCULAR VOLUME 88.1 fl (82.0-101.0); MEAN PLATELET VOLUME 8.8 fl (7.4-10.4); MONOCYTE # 0.6 10^3/ul (0.3-0.9); MONOCYTES % 9.8 % (0.0-11.0); NEUTROPHILS % 60.8 % (39.0-77.0); PLATELET COUNT 253 10^3/UL (140-415); RED BLOOD COUNT 4.04 10^6/ul (4.70-6.10); RED CELL DISTRIBUTION WIDTH 12.1 % (11.5-14.5); WHITE BLOOD COUNT 5.7 10^3/ul (4.8-10.8)
--- NOTE | 2016-12-02 07:20 | CONS ---
Date/Time of Note Date/Time of Note DATE: 12/02/16 TIME: 07:16 Assessment/Plan Assessment/Plan Chief Complaint/Hosp Course Large pericardial effusion: s/p pericardiocentesis with 700mL removed 11/28. Serosanguinous and concerning for possible malignancy. Awaiting cytology. Repeat echo with small effusion so drain removed 11/30. Symptoms resolved Acute diastolic heart failure: due to above. Resolved Chest/abdominal pain: from pericarditis initially, now resolved. Abdominal pain is currently from pericardial drain site DM HTN HL -repeat limited echo to assess for reaccumulation of fluid -plan for d/c tomorrow if echo stable -colchicine 0.6mg BID (would treat for 3 months) -ibuprofen 800mg TID (for a few more days, then can d/c) -PPI -f/u cytology Problems: Consultation Date/Type/Reason Admit Date/Time Nov 28, 2016 at 23:55 Initial Consult Date 11/28/16 Type of Consultation: Cardiology 24 HR Interval Summary Free Text/Dictation No o/n events. Has pain at pericardial drain insertion site. No further chest pain with inspiration. No SOB with ambulation. Exam/Review of Systems Vital Signs Vitals Vital Signs Date Time Temp Pulse Resp B/P Pulse Ox O2 Delivery O2 Flow Rate FiO2 12/02/16 07:15 97.6 61 19 129/77 95 12/01/16 20:00 Nasal Cannula 2.0 Intake and Output 12/01/16 12/01/16 12/02/16 15:00 23:00 07:00 Intake Total 1130 ml 420 ml 350 ml Output Total 400 ml 150 ml 800 ml Balance 730 ml 270 ml -450 ml Exam Constitutional: alert, oriented Psych: no complaints Head: atraumatic, normocephalic Neck: No jvd Respiratory: diminished breath sounds (at bases ), No clear to auscultation, No crackles/rales Cardiovascular: regular rate and rhythm, systolic murmur (2/6 DAYANARA), No edema Gastrointestinal: soft, No non-tender (mild epigastric at prior pericardial drain site ) Neurological: nl mental status, nl speech Results Result Diagram: 12/02/16 0605 12/01/16 0906 Results 24 hrs Laboratory Tests Test 12/01/16 09:05 12/01/16 09:06 12/02/16 06:05 White Blood Count 6.4 5.7 Red Blood Count 4.51 #L 4.04 L Hemoglobin 13.7 #L 11.9 L Hematocrit 40.5 #L 35.6 L Mean Corpuscular Volume 89.8 88.1 Mean Corpuscular Hemoglobin 30.4 29.5 Mean Corpuscular Hemoglobin Concent 33.8 33.4 Red Cell Distribution Width 12.2 12.1 Platelet Count 274 253 Mean Platelet Volume 8.8 8.8 Neutrophils % 68.1 60.8 Lymphocytes % 19.4 25.8 Monocytes % 9.7 9.8 Eosinophils % 2.0 2.8 Basophils % 0.3 0.4 Nucleated Red Blood Cells % 0.0 0.0 Neutrophils # (Manual) 4.4 3.5 Lymphocytes # 1.2 1.5 Monocytes # 0.6 0.6 Eosinophils # 0.1 0.2 Basophils # 0.0 0.0 Nucleated Red Blood Cells # 0.0 0.0 Sodium Level 140 Potassium Level 4.0 Chloride Level 106 Carbon Dioxide Level 26 Anion Gap 12 Blood Urea Nitrogen 16 Creatinine 0.73 Glucose Level 141 Calcium Level 8.5 Phosphorus Level 2.9 Magnesium Level 1.7 Medications Medications Current Medications Acetaminophen 650 mg 650 mg Q6H PRN [place] PAIN; Start 11/28/16 at 00:00 Sodium Chloride (NS) 1,000 ml @ 0 mls/hr Q0M IV ; Start 11/28/16 at 00:00 Colchicine (Colchicine) 0.6 mg BID PO Last administered on 12/01/16 20:53; Admin Dose 0.6 MG; Start 11/28/16 at 10:30 Morphine Sulfate 2 mg 2 mg Q4H PRN IV PAIN Last administered on 11/29/16 03:18 ; Admin Dose 2 MG; Start 11/28/16 at 09:30 Cefepime HCl 50 ml @ 100 mls/hr Q12 IVPB Last administered on 12/01/16 20:49; Admin Dose 100 MLS/HR; Start 11/28/16 at 11:30 Doxycycline Hyclate/Sodium Chloride (Vibramycin/NS) 250 ml @ 250 mls/hr Q12 IVPB Last administered on 12/01/16 20:52; Admin Dose 250 MLS/HR; Start at 11:30 Pantoprazole 40 mg 40 mg DAILY@06 PO Last administered on 12/02/16 05:49; Admin Dose 40 MG; Start 11/29/16 at 08:45 Ferric Sodium Gluconate Complex 125 mg/Sodium Chloride 110 ml @ 100 mls/hr Q24H IVPB Last administered on 12/01/16 11:27; Admin Dose 100 MLS/HR; Start 11/30/16 at 10:00; Stop 12/02/16 at 11:05 Magnesium Sulfate (Magnesium Sulfate 2 Gm/50 ml) 50 ml @ 25 mls/hr DAILY IVPB Last administered on 12/01/16 23:36; Admin Dose 25 MLS/HR; Start 12/01/16 at 20: 00; Stop 12/03/16 at 09:00 PAUL MCKEON Dec 02, 2016 07:20
[2016-12-02 07:27] LABS: CALCIUM 8.4 mg/dl (8.4-10.2); CREATININE 0.69 mg/dl (0.61-1.24); MAGNESIUM 2.1 mg/dl (1.7-2.5); PHOSPHORUS 3.1 mg/dl (2.5-4.9)
[2016-12-02] MEDS: CEFEPIME 1GM/50 ML (PMX) 50 ML IVPB SCH ×2 (08:33→20:40)
[2016-12-02] MEDS: IBUPROFEN 800 MG TAB PO SCH ×3 (08:33→17:54)
[2016-12-02] MEDS: COLCHICINE 0.6 MG TAB PO SCH ×2 (08:33→20:40)
[2016-12-02] MEDS: DOXYCYCLINE 100 MG in SOD CHLORIDE 0.9% 250 ML IVPB SCH ×2 (09:00→20:42)
--- NOTE | 2016-12-02 09:08 | PN ---
Date/Time of Note Date/Time of Note DATE: 12/02/16 TIME: 08:54 Assessment/Plan VTE Prophylaxis VTE Prophylaxis Intervention: ambulation VTE Contraindication Reason: peripheral vascular disease Lines/Catheters IV Catheter Type (from Nrsg): Saline Lock Central line still needed: No Urinary Cath still in place: No Reason Cath still needed: urinary retention Assessment/Plan Chief Complaint/Hosp Course Discussed with dr. Albright ; Planned to d/c tomorrow after echoKG and completion of IV's. Problems: Assessment/Plan 1.Acute pericarditis- s/p pericardiocentesis- tube removed. 2.DM type 2- corrected by diet 3.HTN- now hypotensive 4.LBP- with spinal stenosis 5.Dyslipidemia 6.Memory impairment 7.PTSD 8.BPH 9.LORENZO 10.Osteoporosis 11.Dizziness 12.Major depression 13.Weight loss 14.Hx of having 1 degree AV block- now bradycardic 50-51. 15.Recurrent pneumonias- in the past 16. Low vit "D" level 17.Pleurisy with possible polyserositis- right pleural effusion 18.Low iron with h/h - today 19.Low magnesium 20.Positive serologic tests for AG of CMV; EBV- others are pending. 21.Bradycardia. Cont'd Hospitalization Reason: as above. Subjective 24 Hr Interval Summary Free Text/Dictation SOB improving. When I am moving then i make chest more painful. I felt dizzy when am getting up suddenly. Constitutional: improved, requiring O2, No chills, No diaphoresis, No disoriented, No febrile, No no complaints, No other, No poor po, No requiring IVF Eyes: No discharge, No no complaints, No other, No pain, No redness, No visual change ENT: No bleeding, No congestion, No discharge, No dysphagia, No no complaints, No other, No pain, No sore throat Respiratory: cough, pain, pleuritic pain, shortness of breath, No no complaints, No other, No sputum, No wheezing Cardiovascular: chest pain, lightheadedness, No edema, No no complaints, No orthopenea, No other, No palpitations, No paroxysmal nocturnal dyspnea Gastrointestinal: constipation, decreased appetite, nausea, passing stool, No blood, No diarrhea, No flatus, No no complaints, No other, No pain, No vomiting Genitourinary: dysuria, No bleeding, No discharge, No flank pain, No hematuria, No no complaints, No other Musculoskeletal: back pain, neck pain, No bone/joint pain, No no complaints, No other, No restricted range of motion , No swelling Skin: erythema, pruritis, No bruising, No laceration, No no complaints, No other, No rash, No skin lesions Neurologic: dizziness, headache, No confusion, No focal-weakness, No no complaints, No other, No seizure, No syncope Endocrine: dry skin, No no complaints, No other, No polydypsia, No polyuria, No temp intolerance Psychological: anxiety Immunologic: pruritis Exam/Review of Systems Vital Signs Vitals Vital Signs Date Time Temp Pulse Resp B/P Pulse Ox O2 Delivery O2 Flow Rate FiO2 12/02/16 07:15 97.6 61 19 129/77 95 12/01/16 20:00 Nasal Cannula 2.0 Intake and Output 12/01/16 12/01/16 12/02/16 15:00 23:00 07:00 Intake Total 1130 ml 420 ml 350 ml Output Total 400 ml 150 ml 800 ml Balance 730 ml 270 ml -450 ml Exam Constitutional: alert, distress, frail, oriented, well developed, No non-verbal, No obese, No other Psych: anxiety, No confusion, No depression, No nl mood/affect, No no complaints, No other, No suicidal Head: atraumatic, normocephalic, No hematomas, No lacerations, No other Eyes: EOMI, PERRL, nl lids, No fundi, disc, No icteric, No nl conjunctiva, No nl sclera, No other ENMT: nl external ears & nose, nl lips & teeth, nl nasal mucosa & septum, No intubated, No mucosa pink and moist, No other, No tympanic membranes Neck: bruits, jvd, nuchal rigidity, supple, No masses, No non-tender, No other, No thyromegaly Respiratory: clear to auscultation, congested cough, diminished breath sounds, normal air movement, No crackles/rales, No intercostal retraction, No labored breathing, No other , No respirations, No tactile fremitus, No wheezing Cardiovascular: bruits, systolic murmur, No S3, No S4, No diastolic murmur, No edema, No gallop, No irregular rhythm, No jugular venous distention (JVD), No murmurs/extra sounds, No nl pulses, No other, No regular rate and rhythm, No rub Gastrointestinal: bowel sounds, nl liver, spleen, soft, No ascites, No distended, No firm, No hepatomegaly, No mass, No non-tender, No other, No rebound or guarding, No splenomegaly, No surgical scars, No tender Genitourinary - Male: nl penis, nl scrotum, No CVA tenderness, No discharge, No other Musculoskeletal: joint tenderness, muscle weakness, No muscle tone, No nl extremities to inspection, No nl gait and stance, No other, No range of motion, No spine non-tender, No swelling Extremities: No calf tenderness, No clubbing, No cyanosis, No edema, No normal pulses, No other, No palpable cord, No pitting pedal edema, No tenderness Neurological: 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, nl mental status Skin: diaphoresis, nl turgor, rash or lesions, No ecchymosis, No laceration, No other, No puncture Results Result Diagram: 12/02/16 0605 12/02/16 0605 Results 24 hrs Laboratory Tests Test 12/01/16 09:05 12/01/16 09:06 12/02/16 06:05 White Blood Count 6.4 5.7 Red Blood Count 4.51 #L 4.04 L Hemoglobin 13.7 #L 11.9 L Hematocrit 40.5 #L 35.6 L Mean Corpuscular Volume 89.8 88.1 Mean Corpuscular Hemoglobin 30.4 29.5 Mean Corpuscular Hemoglobin Concent 33.8 33.4 Red Cell Distribution Width 12.2 12.1 Platelet Count 274 253 Mean Platelet Volume 8.8 8.8 Neutrophils % 68.1 60.8 Lymphocytes % 19.4 25.8 Monocytes % 9.7 9.8 Eosinophils % 2.0 2.8 Basophils % 0.3 0.4 Nucleated Red Blood Cells % 0.0 0.0 Neutrophils # (Manual) 4.4 3.5 Lymphocytes # 1.2 1.5 Monocytes # 0.6 0.6 Eosinophils # 0.1 0.2 Basophils # 0.0 0.0 Nucleated Red Blood Cells # 0.0 0.0 Sodium Level 140 139 Potassium Level 4.0 4.0 Chloride Level 106 108 Carbon Dioxide Level 26 26 Anion Gap 12 9 Blood Urea Nitrogen 16 16 Creatinine 0.73 0.69 Glucose Level 141 94 # Calcium Level 8.5 8.4 Phosphorus Level 2.9 3.1 Magnesium Level 1.7 2.1 Medications Medications Current Medications Acetaminophen 650 mg 650 mg Q6H PRN [place] PAIN; Start 11/28/16 at 00:00 Sodium Chloride (NS) 1,000 ml @ 0 mls/hr Q0M IV ; Start 11/28/16 at 00:00 Colchicine (Colchicine) 0.6 mg BID PO Last administered on 12/02/16 08:33; Admin Dose 0.6 MG; Start 11/28/16 at 10:30 Morphine Sulfate 2 mg 2 mg Q4H PRN IV PAIN Last administered on 11/29/16 03:18 ; Admin Dose 2 MG; Start 11/28/16 at 09:30 Cefepime HCl 50 ml @ 100 mls/hr Q12 IVPB Last administered on 12/02/16 08:33; Admin Dose 100 MLS/HR; Start 11/28/16 at 11:30 Doxycycline Hyclate/Sodium Chloride (Vibramycin/NS) 250 ml @ 250 mls/hr Q12 IVPB Last administered on 12/01/16 20:52; Admin Dose 250 MLS/HR; Start at 11:30 Pantoprazole 40 mg 40 mg DAILY@06 PO Last administered on 12/02/16 05:49; Admin Dose 40 MG; Start 11/29/16 at 08:45 Ferric Sodium Gluconate Complex 125 mg/Sodium Chloride 110 ml @ 100 mls/hr Q24H IVPB Last administered on 12/01/16 11:27; Admin Dose 100 MLS/HR; Start 11/30/16 at 10:00; Stop 12/02/16 at 11:05 Magnesium Sulfate (Magnesium Sulfate 2 Gm/50 ml) 50 ml @ 25 mls/hr DAILY IVPB Last administered on 12/01/16 23:36; Admin Dose 25 MLS/HR; Start 12/01/16 at 20: 00; Stop 12/03/16 at 09:00 SALEEM LEWIS MD Dec 02, 2016 09:04
--- NOTE | 2016-12-02 10:43 | CONS ---
Date/Time of Note Date/Time of Note DATE: 11/28/16 TIME: 20:15 VK LE Assessment/Plan Assessment/Plan Chief Complaint/Hosp Course ANEMIA WITH DROP OF H/H DURING HOSPITALIZATION MONITOR COUNT CLOSELY OBSERVE FOR BLEEDING AND HEMOLYSIS PRBC NEEDED Acute pericarditis- s/p pericardicentesis Pleurisy with possible polyserositis s/p pericardiocentesis with 700mL removed 11/28. Serosanguineous and concerning for possible malignancy. 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 This morning the patient underwent pericardiocentesis, with placement of pericardial drain, 750 mL of fluid was drained. The patient is now reporting decreased shortness of breath but is complaining of pain at the catheter insertion site. Detailed history was obtained from patient's 2 children who were present in the room. According to then the patient has been having shortness of breath and cough for the last several weeks and has been seen at various hospitals without definitive diagnosis being made until just recently. He himself denies any coughing no any sputum production hemoptysis fever chills. According to the patient's family there is no prior history of any pericardial effusion or any other episodes of shortness of breath or pneumonia. s/p pericardiocentesis with 700mL removed 11/28. Serosanguineous and concerning for possible malignancy. Awaiting cytology I WAS ASKED TO PROVIDE HEMEONC CONSULT RE ANEMIA AND POS MALIGNANCY PT WAS NOTED TO HAVE DROP H/H DURING HOSPITALIZATION Past medical history; 1. History of bilateral cataract surgery. 2. No history of any pneumonia, any pericardial effusion. Medications; reviewed. Allergies; none. Social history; patient quit smoking 40 years ago. Most of alcohol or drug abuse. Family history; patient is a . Has 2 children. No history of any significant illnesses in the family. 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 Review of systems; denies any headache, visual changes. Complains of chest pain at pericardial catheter insertion site in the epigastric area. Denies any wheezing, sputum production or hemoptysis. Denies any weight loss. Any fever or chills. Denies any abdominal pain, nausea vomiting. Any melena or hematochezia. Any weight loss. Denies any orthopnea. Shortness of breath is now improved. General exam; elderly male, awake and alert. Currently in no distress. Eyes: No discharge, No no complaints, No other, No pain, No redness, No visual change ENT: No bleeding, No congestion, No discharge, No dysphagia, No no complaints, No other, No pain, No sore throat Respiratory: cough, pain, pleuritic pain, shortness of breath, No no complaints, No other, No sputum, No wheezing Cardiovascular: chest pain, lightheadedness, orthopenea, palpitations, paroxysmal nocturnal dyspnea, No edema, No no complaints, No other Gastrointestinal: constipation, decreased appetite, flatus, nausea, passing stool, No blood, No diarrhea, No no complaints, No other, No pain, No vomiting Genitourinary: dysuria, No bleeding, No discharge, No flank pain, No hematuria, No no complaints, No other Musculoskeletal: back pain, bone/joint pain, No neck pain, No no complaints, No other, No restricted range of motion, No swelling Skin: rash, No bruising, No erythema, No laceration, No no complaints, No other, No pruritis, No skin lesions Neurologic: dizziness, No confusion, No focal-weakness, No headache, No no complaints, No other, No seizure, No syncope Lymphatic: No adenopathy, No lymphadema, No no complaints, No other, No tender nodes Psychological: anxiety, No confusion, No depression, No nl mood/affect, No no complaints, No other, No suicidal Immunologic: No immunodeficiency, No no complaints, No other, No pruritis, No rhinitis, No urticaria Past Medical History Medical History: angina, congestive heart failure, coronary artery disease, diabetes (resolved after the weight loss.), GERD, high cholesterol, hypertension, urinary tract infection Past Surgical History Past Surgical Hx: endoscopy Social History Alcohol Use: none Smoking Status: Former smoker Drug Use: none Constitutional: improved, requiring O2, No chills, No diaphoresis, No disoriented, No febrile, No no complaints, No other, No poor po, No requiring IVF Eyes: No discharge, No no complaints, No other, No pain, No redness, No visual change ENT: No bleeding, No congestion, No discharge, No dysphagia, No no complaints, No other, No pain, No sore throat Respiratory: cough, pain, pleuritic pain, shortness of breath, No no complaints, No other, No sputum, No wheezing Cardiovascular: chest pain, lightheadedness, No edema, No no complaints, No orthopenea, No other, No palpitations, No paroxysmal nocturnal dyspnea Gastrointestinal: constipation, decreased appetite, nausea, passing stool, No blood, No diarrhea, No flatus, No no complaints, No other, No pain, No vomiting Genitourinary: dysuria, No bleeding, No discharge, No flank pain, No hematuria, No no complaints, No other Musculoskeletal: back pain, neck pain, No bone/joint pain, No no complaints, No other, No restricted range of motion , No swelling Skin: erythema, pruritis, No bruising, No laceration, No no complaints, No other, No rash, No skin lesions Neurologic: dizziness, headache, No confusion, No focal-weakness, No no complaints, No other, No seizure, No syncope Endocrine: dry skin, No no complaints, No other, No polydypsia, No polyuria, No temp intolerance Lymphatic: no complaints Psychological: anxiety, No confusion, No depression, No nl mood/affect, No no complaints, No other, No suicidal Immunologic: pruritis Past Medical History Medical History: angina, congestive heart failure, coronary artery disease, diabetes (resolved after the weight loss.), GERD, high cholesterol, hypertension, urinary tract infection Past Surgical History Past Surgical Hx: endoscopy Social History Alcohol Use: none Smoking Status: Former smoker Drug Use: none Exam/Review of Systems Exam Constitutional: alert, frail, oriented, well developed, No distress, No non-verbal, No obese, No other Psych: anxiety, no complaints (for now.), No confusion, No depression, No nl mood/affect, No other, No suicidal Head: atraumatic, normocephalic, No hematomas, No lacerations, No other Eyes: EOMI, PERRL, nl conjunctiva (erythematose.), nl lids ENMT: nl external ears & nose, nl lips & teeth, nl nasal mucosa & septum, No intubated, No mucosa pink and moist, No other, No tympanic membranes Neck: bruits, jvd, nuchal rigidity, No masses, No non-tender, No other, No supple, No thyromegaly Respiratory: clear to auscultation, congested cough, diminished breath sounds, normal air movement Cardiovascular: bruits, regular rate and rhythm (decreased rhythm.), systolic murmur, No S3, No S4, No diastolic murmur, No edema, No gallop, No irregular rhythm, No jugular venous distention (JVD), No murmurs/extra sounds, No nl pulses, No other, No rub Gastrointestinal: non-tender, soft, No ascites, No bowel sounds, No distended, No firm, No hepatomegaly, No mass , No nl liver, spleen, No other, No rebound or guarding, No splenomegaly, No surgical scars, No tender Genitourinary - Male: nl penis, nl scrotum Musculoskeletal: joint tenderness, muscle tone, No muscle weakness, No nl extremities to inspection, No nl gait and stance, No other, No range of motion, No spine non-tender, No swelling Extremities: tenderness, No calf tenderness, No clubbing, No cyanosis, No edema, No normal pulses, No other, No palpable cord, No pitting pedal edema Neurological: confused, nl mental status, nl speech, numbness, 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, No DTR's symmetric, No focal weakness, No lethargic, No nl strength, No other, No reflexes, No unresponsive Skin: ecchymosis, nl turgor, No diaphoresis, No laceration, No other, No puncture, No rash or lesions NO HEMATOMA, NO PETECHIA Results Results Result Diagram: 11/28/1652111/27/162048 Results 24 hrs Laboratory Tests Test 11/27/16 20:49 11/28/16 02:30 11/28/16 05:22 11/28/16 08:30 White Blood Count 7.8 6.4 Red Blood Count 4.12 L 3.47 L Hemoglobin 12.8 L 10.5 L Hematocrit 37.6 L 32.2 L Mean Corpuscular Volume 91.3 92.8 Mean Corpuscular Hemoglobin 31.1 30.3 Mean Corpuscular Hemoglobin Concent 34.0 32.6 Red Cell Distribution Width 12.3 12.6 Platelet Count 393 303 # Mean Platelet Volume 9.2 9.1 Neutrophils % 71.1 62.2 Lymphocytes % 17.6 24.1 Monocytes % 9.5 11.5 H Eosinophils % 1.0 1.2 Basophils % 0.4 0.5 Nucleated Red Blood Cells % 0.0 0.0 Neutrophils # (Manual) 5.5 4.0 Lymphocytes # 1.4 1.6 Monocytes # 0.7 0.7 Eosinophils # 0.1 0.1 Basophils # 0.0 0.0 Nucleated Red Blood Cells # 0.0 0.0 Prothrombin Time 15.7 H 15.9 H Prothrombin Time Ratio 1.2 1.2 INR International Normalized Ratio 1.24 1.26 Activated Partial Thromboplast Time 29.5 31.7 Sodium Level 145 H Potassium Level 4.2 Chloride Level 102 Carbon Dioxide Level 27 Anion Gap 20 H Blood Urea Nitrogen 23 H Creatinine 0.96 Glucose Level 151 Calcium Level 9.5 Troponin I < 0.012 < 0.012 Creatine Kinase 36 Creatine Kinase Index 1.8 Creatinine Kinase MB (Mass) 0.63 Body Fluid Type PERICARDIAL Body Fluid Volume 105.0 Body Fluid Color RED Body Fluid Appearance BLOODY Body Fluid WBC 3712 Body Fluid RBC (Auto) 1757 Body Fluid Polynuclear WBCs (%) 11.6 Body Fluid Mononuclear Cells % Auto 88.4 Body Fluid Glucose 102 Body Fluid Total Protein 4.8 Body Fluid Lactate Dehydrogenase Test 11/28/16 09:55 Creatine Kinase 50 Creatine Kinase Index 2.8 Creatinine Kinase MB (Mass) 1.41 Troponin I < 0.012 Result Diagram: 12/02/16 0605 12/02/16 0605 Results 24 hrs Laboratory Tests Test 12/02/16 06:05 12/02/16 08:56 White Blood Count 5.7 Red Blood Count 4.04 L Hemoglobin 11.9 L Hematocrit 35.6 L Mean Corpuscular Volume 88.1 Mean Corpuscular Hemoglobin 29.5 Mean Corpuscular Hemoglobin Concent 33.4 Red Cell Distribution Width 12.1 Platelet Count 253 Mean Platelet Volume 8.8 Neutrophils % 60.8 Lymphocytes % 25.8 Monocytes % 9.8 Eosinophils % 2.8 Basophils % 0.4 Nucleated Red Blood Cells % 0.0 Neutrophils # (Manual) 3.5 Lymphocytes # 1.5 Monocytes # 0.6 Eosinophils # 0.2 Basophils # 0.0 Nucleated Red Blood Cells # 0.0 Sodium Level 139 Potassium Level 4.0 Chloride Level 108 Carbon Dioxide Level 26 Anion Gap 9 Blood Urea Nitrogen 16 Creatinine 0.69 Glucose Level 94 # Calcium Level 8.4 Phosphorus Level 3.1 Magnesium Level 2.1 Lab Scanned Report REFERENCE LAB Medications Medications Current Medications Acetaminophen 650 mg 650 mg Q6H PRN AL PAIN; Start 11/28/16 at 00:00 Sodium Chloride (NS) 1,000 ml @ 0 mls/hr Q0M IV ; Start 11/28/16 at 00:00 Colchicine (Colchicine) 0.6 mg BID PO Last administered on 12/02/16 08:33; Admin Dose 0.6 MG; Start 11/28/16 at 10:30 Morphine Sulfate 2 mg 2 mg Q4H PRN IV PAIN Last administered on 11/29/16 03:18 ; Admin Dose 2 MG; Start 11/28/16 at 09:30 Cefepime HCl 50 ml @ 100 mls/hr Q12 IVPB Last administered on 12/02/16 08:33; Admin Dose 100 MLS/HR; Start 11/28/16 at 11:30 Doxycycline Hyclate/Sodium Chloride (Vibramycin/NS) 250 ml @ 250 mls/hr Q12 IVPB Last administered on 12/01/16 20:52; Admin Dose 250 MLS/HR; Start at 11:30 Pantoprazole 40 mg 40 mg DAILY@06 PO Last administered on 12/02/16 05:49; Admin Dose 40 MG; Start 11/29/16 at 08:45 Ferric Sodium Gluconate Complex 125 mg/Sodium Chloride 110 ml @ 100 mls/hr Q24H IVPB Last administered on 12/01/16 11:27; Admin Dose 100 MLS/HR; Start 11/30/16 at 10:00; Stop 12/02/16 at 11:05 Magnesium Sulfate (Magnesium Sulfate 2 Gm/50 ml) 50 ml @ 25 mls/hr DAILY IVPB Last administered on 12/01/16 23:36; Admin Dose 25 MLS/HR; Start 12/01/16 at 20: 00; Stop 12/03/16 at 09:00 FILEMON REIS MD Dec 02, 2016 10:31
--- NOTE | 2016-12-02 11:30 | CONS ---
Date/Time of Note Date/Time of Note DATE: 12/02/16 TIME: 11:29 Consult Date/Type/Reason Admit Date/Time Nov 28, 2016 at 23:55 Initial Consult Date 11/28/16 Type of Consultation: pulm Ordering Provider: SALEEM LEWIS MD Subjective Comfortable this morning denies general shortness of breath Objective Vital Signs Date Time Temp Pulse Resp B/P Pulse Ox O2 Delivery O2 Flow Rate FiO2 12/02/16 11:08 98.2 64 21 146/74 96 12/02/16 08:00 Nasal Cannula 2.0 Intake and Output 12/01/16 12/01/16 12/02/16 15:00 23:00 07:00 Intake Total 1130 ml 420 ml 350 ml Output Total 400 ml 150 ml 800 ml Balance 730 ml 270 ml -450 ml Exam PHYSICAL EXAMINATION: GENERAL: Well-nourished well developed gentleman comfortable at rest VITAL SIGNS: NECK: Supple. No JVD. No lymphadenopathy. HEART: S1, S2. No added sounds or murmurs. CHEST: Diminished air entry bilaterally. ABDOMEN: Soft, nontender. No guarding or rebound. EXTREMITIES: No cyanosis, clubbing. Edema plus 2. NEUROLOGIC: Generalized weakness. Results/Medications Result Diagram: 12/02/16 0605 12/02/16 0605 Results 24 hrs Laboratory Tests Test 12/02/16 06:05 12/02/16 08:56 White Blood Count 5.7 Red Blood Count 4.04 L Hemoglobin 11.9 L Hematocrit 35.6 L Mean Corpuscular Volume 88.1 Mean Corpuscular Hemoglobin 29.5 Mean Corpuscular Hemoglobin Concent 33.4 Red Cell Distribution Width 12.1 Platelet Count 253 Mean Platelet Volume 8.8 Neutrophils % 60.8 Lymphocytes % 25.8 Monocytes % 9.8 Eosinophils % 2.8 Basophils % 0.4 Nucleated Red Blood Cells % 0.0 Neutrophils # (Manual) 3.5 Lymphocytes # 1.5 Monocytes # 0.6 Eosinophils # 0.2 Basophils # 0.0 Nucleated Red Blood Cells # 0.0 Sodium Level 139 Potassium Level 4.0 Chloride Level 108 Carbon Dioxide Level 26 Anion Gap 9 Blood Urea Nitrogen 16 Creatinine 0.69 Glucose Level 94 # Calcium Level 8.4 Phosphorus Level 3.1 Magnesium Level 2.1 Lab Scanned Report REFERENCE LAB Medications Current Medications Acetaminophen 650 mg 650 mg Q6H PRN ME PAIN; Start 11/28/16 at 00:00 Sodium Chloride (NS) 1,000 ml @ 0 mls/hr Q0M IV ; Start 11/28/16 at 00:00 Colchicine (Colchicine) 0.6 mg BID PO Last administered on 12/02/16 08:33; Admin Dose 0.6 MG; Start 11/28/16 at 10:30 Morphine Sulfate 2 mg 2 mg Q4H PRN IV PAIN Last administered on 11/29/16 03:18 ; Admin Dose 2 MG; Start 11/28/16 at 09:30 Cefepime HCl 50 ml @ 100 mls/hr Q12 IVPB Last administered on 12/02/16 08:33; Admin Dose 100 MLS/HR; Start 11/28/16 at 11:30 Doxycycline Hyclate/Sodium Chloride (Vibramycin/NS) 250 ml @ 250 mls/hr Q12 IVPB Last administered on 12/02/16 09:00; Admin Dose 250 MLS/HR; Start at 11:30 Pantoprazole 40 mg 40 mg DAILY@06 PO Last administered on 12/02/16 05:49; Admin Dose 40 MG; Start 11/29/16 at 08:45 Magnesium Sulfate (Magnesium Sulfate 2 Gm/50 ml) 50 ml @ 25 mls/hr DAILY IVPB Last administered on 12/01/16 23:36; Admin Dose 25 MLS/HR; Start 12/01/16 at 20: 00; Stop 12/03/16 at 09:00 Assessment/Plan Chief Complaint/Hosp Course Discharge planning okay from pulmonary standpoint assessment 1. Pericardial effusion status post pericardiocentesis 2. History of first-degree heart block 3. History of remote tobacco use 4. Stable chronic anemia 5. Hypoxemia secondary to underlying COPD and pericardial effusion. Plan 1. Await cytology results. 2. Supplemental O2 as needed 3. Cardiac recommendations 4. Encourage out of bed as tolerated Discharge planning okay from pulmonary standpoint Problems: YO HAQUE MD, [facility] Dec 02, 2016 11:30
[2016-12-02] MEDS: SOD FERRIC GLUC COMPLX 125 MG in SOD CHLORIDE 0.9% 100 ML IVPB SCH (14:10)
[2016-12-02] MEDS: MAGNESIUM SULFATE 2 GM/50 ML 50 ML IVPB SCH (14:11)
[2016-12-02 14:29] LABS: BASOPHILS % 0.3 % (0.0-2.0); EOSINOPHILS # 0.1 10^3/ul (0.0-0.5); EOSINOPHILS % 2.1 % (0.0-7.0); HEMOGLOBIN 12.7 g/dl (14.0-18.0); LYMPHOCYTES # 1.2 10^3/ul (0.8-2.9); LYMPHOCYTES % 19.8 % (15.0-51.0); MEAN CORPUSCULAR HEMOGLOBIN 31.3 pg (29.0-33.0); MEAN CORPUSCULAR HGB CONC 35.3 g/dl (32.0-37.0); MEAN CORPUSCULAR VOLUME 88.7 fl (82.0-101.0); MEAN PLATELET VOLUME 8.7 fl (7.4-10.4); MONOCYTE # 0.6 10^3/ul (0.3-0.9); MONOCYTES % 9.8 % (0.0-11.0); NEUTROPHILS % 67.5 % (39.0-77.0); PLATELET COUNT 251 10^3/UL (140-415); RED BLOOD COUNT 4.06 10^6/ul (4.70-6.10); RED CELL DISTRIBUTION WIDTH 12.1 % (11.5-14.5); WHITE BLOOD COUNT 6.2 10^3/ul (4.8-10.8)
--- NOTE | 2016-12-02 14:45 | RADRPT ---
PROCEDURE: XR Chest. CLINICAL INDICATION: CHF TECHNIQUE: An AP view of the chest was obtained. COMPARISON: Chest x-ray dated 12/01/2016 FINDINGS: There is prominence of the central pulmonary vascular markings with small bilateral pleural effusion s. There is obscuration of the left diaphragm. No pneumothorax is seen. The cardiomediastinal silh ouette is mildly enlarged . Calcifications are seen within the aortic arch. The osseous structures demonstrate senescent changes. IMPRESSION: 1. Findings suggestive of pulmonary vascular congestion with small bilateral pleural effusions. Th ere is interval decrease in size of the left pleural effusion when compared to the prior examination . 2. Left basilar atelectasis versus pneumonia. 3. Mild cardiomegaly and aortic atherosclerosis. RPTAT: HH .Samara Dash MD, Date Time Electronically viewed and signed by .Samara Dash MD, on 12/02/2016 14:44 .G/
--- NOTE | 2016-12-02 16:16 | CONS ---
Date/Time of Note Date/Time of Note DATE: 12/02/16 TIME: 16:15 Assessment/Plan Assessment/Plan Chief Complaint/Hosp Course ANEMIA WITH DROP OF H/H DURING HOSPITALIZATION MONITOR COUNT CLOSELY OBSERVE FOR BLEEDING AND HEMOLYSIS PRBC NEEDED CHECK COUNT IN AM Acute pericarditis- s/p pericardicentesis Pleurisy with possible polyserositis s/p pericardiocentesis with 700mL removed 11/28. Serosanguineous and concerning for possible malignancy. Awaiting cytology DM type 2- corrected by diet HTN LBP- with spinal stenosis Dyslipidemia Memory impairment PTSD BPH LORENZO Osteoporosis Dizziness Major depression Weight loss Hx of having 1 degree AV block Recurrent pneumonias Low vit "D" level Problems: Consultation Date/Type/Reason Admit Date/Time Nov 28, 2016 at 23:55 Initial Consult Date 11/28/16 Type of Consultation: HEMEON Referring Provider: SALEEM LEWIS MD 24 HR Interval Summary Free Text/Dictation ALL NOTED NAD PATH -P Exam/Review of Systems Vital Signs Vitals Vital Signs Date Time Temp Pulse Resp B/P Pulse Ox O2 Delivery O2 Flow Rate FiO2 12/02/16 15:07 97.9 61 21 114/60 97 12/02/16 08:00 Nasal Cannula 2.0 Intake and Output 12/01/16 12/01/16 12/02/16 15:00 23:00 07:00 Intake Total 1130 ml 420 ml 350 ml Output Total 400 ml 150 ml 800 ml Balance 730 ml 270 ml -450 ml Exam Constitutional: alert, frail, oriented, well developed, No distress, No non-verbal, No obese, No other Psych: anxiety, confusion, depression, nl mood/affect, No no complaints, No other, No suicidal Head: atraumatic, normocephalic Eyes: EOMI, PERRL, nl lids, No fundi, disc, No icteric, No nl conjunctiva, No nl sclera, No other ENMT: nl nasal mucosa & septum, No intubated, No mucosa pink and moist, No nl external ears & nose, No nl lips & teeth, No other, No tympanic membranes Neck: bruits, jvd, No masses, No non-tender, No nuchal rigidity, No other, No supple, No thyromegaly Respiratory: congested cough, diminished breath sounds, normal air movement, No clear to auscultation, No crackles/rales, No intercostal retraction, No labored breathing, No other, No respirations, No tactile fremitus, No wheezing Cardiovascular: bruits, nl pulses, other (Pericardocentesis catheter in place. No crepitations. 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.), confused, nl mental status, nl speech, nl strength, numbness, No DTR's symmetric, No focal weakness, No lethargic, No other, No reflexes, No unresponsive Skin: nl turgor, No diaphoresis, No ecchymosis, No laceration, No other, No puncture, No rash or lesions Results Result Diagram: 12/02/16 1411 12/02/16 0605 Results 24 hrs Laboratory Tests Test 12/02/16 06:05 12/02/16 08:56 12/02/16 14:11 White Blood Count 5.7 6.2 Red Blood Count 4.04 L 4.06 L Hemoglobin 11.9 L 12.7 L Hematocrit 35.6 L 36.0 L Mean Corpuscular Volume 88.1 88.7 Mean Corpuscular Hemoglobin 29.5 31.3 Mean Corpuscular Hemoglobin Concent 33.4 35.3 Red Cell Distribution Width 12.1 12.1 Platelet Count 253 251 Mean Platelet Volume 8.8 8.7 Neutrophils % 60.8 67.5 Lymphocytes % 25.8 19.8 Monocytes % 9.8 9.8 Eosinophils % 2.8 2.1 Basophils % 0.4 0.3 Nucleated Red Blood Cells % 0.0 0.0 Neutrophils # (Manual) 3.5 4.2 Lymphocytes # 1.5 1.2 Monocytes # 0.6 0.6 Eosinophils # 0.2 0.1 Basophils # 0.0 0.0 Nucleated Red Blood Cells # 0.0 0.0 Sodium Level 139 Potassium Level 4.0 Chloride Level 108 Carbon Dioxide Level 26 Anion Gap 9 Blood Urea Nitrogen 16 Creatinine 0.69 Glucose Level 94 # Calcium Level 8.4 Phosphorus Level 3.1 Magnesium Level 2.1 Lab Scanned Report REFERENCE LAB Lactate Dehydrogenase 367 Medications Medications Current Medications Acetaminophen 650 mg [address] PAIN; Start 11/28/16 at 00:00 Sodium Chloride (NS) 1,000 ml @ 0 mls/hr Q0M IV ; Start 11/28/16 at 00:00 Colchicine (Colchicine) 0.6 mg BID PO Last administered on 12/02/16 08:33; Admin Dose 0.6 MG; Start 11/28/16 at 10:30 Morphine Sulfate 2 mg 2 mg Q4H PRN IV PAIN Last administered on 11/29/16 03:18 ; Admin Dose 2 MG; Start 11/28/16 at 09:30 Cefepime HCl 50 ml @ 100 mls/hr Q12 IVPB Last administered on 12/02/16 08:33; Admin Dose 100 MLS/HR; Start 11/28/16 at 11:30 Doxycycline Hyclate/Sodium Chloride (Vibramycin/NS) 250 ml @ 250 mls/hr Q12 IVPB Last administered on 12/02/16 09:00; Admin Dose 250 MLS/HR; Start at 11:30 Pantoprazole 40 mg 40 mg DAILY@06 PO Last administered on 12/02/16 05:49; Admin Dose 40 MG; Start 11/29/16 at 08:45 Magnesium Sulfate (Magnesium Sulfate 2 Gm/50 ml) 50 ml @ 25 mls/hr DAILY IVPB Last administered on 12/02/16 14:11; Admin Dose 25 MLS/HR; Start 12/01/16 at 20: 00; Stop 12/03/16 at 09:00 FILEMON REIS MD Dec 02, 2016 16:15
--- NOTE | 2016-12-02 22:45 | RADRPT ---
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 Physician: DEREK ALBRIGHT Quality: Good Procedures: Transthoracic echocardiogram examination. Indications: Pericardial Effusion. Findings Pericardium: Left pleural effusion seen. Trace to small pericardial effusion unchanged from study 11/29/2016. IVC: Normal inferior vena cava appearance and respiratory collapse. Conclusions Trace to small pericardial effusion unchanged from study 11/29/2016. Normal EF. Pleural effusion. Normal inferior vena cava size and respiratory collapse. Electronically Signed By: Derek Albright 02-Dec-2016 22:45:20 -0700 Patient Name: JOSE MANUEL PAREKH Study Date: 02-Dec-2016 [id number]
[2016-12-03] VITALS (7 sets, daily range): BP systolic 128–145; BP diastolic 68–83; PULSE 58–68; RESP 18–20
[2016-12-03] MEDS: PANTOPRAZOLE (EC) 40 MG TAB PO SCH (06:13)
--- NOTE | 2016-12-03 08:00 | CONS ---
Date/Time of Note Date/Time of Note DATE: 12/03/16 TIME: 07:58 Assessment/Plan Assessment/Plan Chief Complaint/Hosp Course Large pericardial effusion: s/p pericardiocentesis with 700mL removed 11/28. Serosanguinous and concerning for possible malignancy. Awaiting cytology. Repeat echo with small effusion so drain removed 11/30. Repeat echo 12/02 with trace -small effusion unchanged from 11/29. Symptoms resolved Acute diastolic heart failure: due to above. Resolved Chest/abdominal pain: from pericarditis initially, now resolved. Abdominal pain is currently from pericardial drain site, now resolved DM HTN HL -ok for d/c from my perspective if no other active issues -colchicine 0.6mg BID (would treat for 3 months) -ibuprofen 800mg TID (can d/c on discharge) -PPI -f/u cytology Problems: Consultation Date/Type/Reason Admit Date/Time Nov 28, 2016 at 23:55 Initial Consult Date 11/28/16 Type of Consultation: Cardiology Referring Provider: SALEEM LEWIS MD 24 HR Interval Summary Free Text/Dictation Had an uncomfortable night. Urinated frequently and could not sleep. Feels tired. Yesterday during the day ambulated without issues. Exam/Review of Systems Vital Signs Vitals Vital Signs Date Time Temp Pulse Resp B/P Pulse Ox O2 Delivery O2 Flow Rate FiO2 12/03/16 07:14 97.6 53 20 145/77 97 12/02/16 20:40 Nasal Cannula 2.0 Intake and Output 12/02/16 12/02/16 12/03/16 15:00 23:00 07:00 Intake Total 760 ml 250 ml Output Total 800 ml Balance -40 ml 250 ml Exam Constitutional: alert, oriented Psych: nl mood/affect Head: atraumatic, normocephalic Neck: No jvd Respiratory: clear to auscultation, diminished breath sounds, No crackles/rales Cardiovascular: regular rate and rhythm, systolic murmur (2/6 DAYANARA), No edema Gastrointestinal: non-tender, soft Neurological: nl mental status, nl speech Results Result Diagram: 12/02/16 1411 12/02/16 0605 Results 24 hrs Laboratory Tests Test 12/02/16 08:56 12/02/16 14:11 Lab Scanned Report REFERENCE LAB White Blood Count 6.2 Red Blood Count 4.06 L Hemoglobin 12.7 L Hematocrit 36.0 L Mean Corpuscular Volume 88.7 Mean Corpuscular Hemoglobin 31.3 Mean Corpuscular Hemoglobin Concent 35.3 Red Cell Distribution Width 12.1 Platelet Count 251 Mean Platelet Volume 8.7 Neutrophils % 67.5 Lymphocytes % 19.8 Monocytes % 9.8 Eosinophils % 2.1 Basophils % 0.3 Nucleated Red Blood Cells % 0.0 Neutrophils # (Manual) 4.2 Lymphocytes # 1.2 Monocytes # 0.6 Eosinophils # 0.1 Basophils # 0.0 Nucleated Red Blood Cells # 0.0 Lactate Dehydrogenase 367 Medications Medications Current Medications Acetaminophen 650 mg 650 mg Q6H PRN [place] PAIN; Start 11/28/16 at 00:00 Sodium Chloride (NS) 1,000 ml @ 0 mls/hr Q0M IV ; Start 11/28/16 at 00:00 Colchicine (Colchicine) 0.6 mg BID PO Last administered on 12/02/16 20:40; Admin Dose 0.6 MG; Start 11/28/16 at 10:30 Morphine Sulfate 2 mg 2 mg Q4H PRN IV PAIN Last administered on 11/29/16 03:18 ; Admin Dose 2 MG; Start 11/28/16 at 09:30 Cefepime HCl 50 ml @ 100 mls/hr Q12 IVPB Last administered on 12/02/16 20:40; Admin Dose 100 MLS/HR; Start 11/28/16 at 11:30 Doxycycline Hyclate/Sodium Chloride (Vibramycin/NS) 250 ml @ 250 mls/hr Q12 IVPB Last administered on 12/02/16 20:42; Admin Dose 250 MLS/HR; Start at 11:30 Pantoprazole 40 mg 40 mg DAILY@06 PO Last administered on 12/03/16 06:13; Admin Dose 40 MG; Start 11/29/16 at 08:45 Magnesium Sulfate (Magnesium Sulfate 2 Gm/50 ml) 50 ml @ 25 mls/hr DAILY IVPB Last administered on 12/02/16 14:11; Admin Dose 25 MLS/HR; Start 12/01/16 at 20: 00; Stop 12/03/16 at 09:00 Enalapril Maleate (Vasotec) 5 mg DAILY PO ; Start 12/03/16 at 09:00 Amlodipine Besylate (Norvasc) 5 mg DAILY PO ; Start 12/03/16 at 09:00 PAUL MCKEON Dec 03, 2016 08:00
[2016-12-03] MEDS: IBUPROFEN 800 MG TAB PO SCH ×2 (08:09→12:15)
[2016-12-03] MEDS: COLCHICINE 0.6 MG TAB PO SCH (08:09)
[2016-12-03] MEDS: CEFEPIME 1GM/50 ML (PMX) 50 ML IVPB SCH (08:10)
--- NOTE | 2016-12-03 08:58 | PDOCDIS ---
Discharge Instructions DIAGNOSIS Discharge Diagnosis 1.Acute pericarditis- s/p pericardiocentesis- tube removed. 2.DM type 2- corrected by diet 3.HTN- now hypotensive 4.LBP- with spinal stenosis 5.Dyslipidemia 6.Memory impairment 7.PTSD 8.BPH 9.LORENZO 10.Osteoporosis 11.Dizziness 12.Major depression 13.Weight loss 14.Hx of having 1 degree AV block- now bradycardic 50-51. 15.Recurrent pneumonias- in the past 16. Low vit "D" level 17.Pleurisy with possible polyserositis- right pleural effusion 18.Low iron with h/h - today 19.Low magnesium 20.Positive serologic tests for AG of CMV; EBV- others are pending. 21.Bradycardia. CONDITION Patient Condition: Fair HOME CARE INSTRUCTIONS: Diet Instructions: Reduced SodiumSpecial Diet: cardiac, 1800 andrew ADA ACTIVITY: Activity Restrictions: Slowly Increase Activity Bathing Restrictions: Shower FOLLOW UP/APPOINTMENTS Follow-up Plan to in 3 days to in 7 days REFERRALS Other Referrals no. SCHOOL/WORK RELEASE May return to School/Work on: Dec 03, 2016 May return to School/Work with: With Restrictions School/Work Release Comment: none. SALEEM LEWIS MD Dec 03, 2016 08:58
[2016-12-03] MEDS ORDERED: ENALAPRIL 5 MG TAB PO SCH (09:00)
[2016-12-03] MEDS ORDERED: AMLODIPINE 5 MG TAB PO SCH (09:00)
[2016-12-03] MEDS: DOXYCYCLINE 100 MG in SOD CHLORIDE 0.9% 250 ML IVPB SCH (09:30)
[2016-12-03] MEDS: MAGNESIUM SULFATE 2 GM/50 ML 50 ML IVPB SCH (10:54)
--- NOTE | 2016-12-03 15:26 | CONS ---
Date/Time of Note Date/Time of Note DATE: 12/03/16 TIME: 15:25 Consult Date/Type/Reason Admit Date/Time Nov 28, 2016 at 23:55 Initial Consult Date 11/28/16 Type of Consultation: Pulmonary Ordering Provider: SALEEM LEWIS MD Subjective Patient remains stable no new events Objective Vital Signs Date Time Temp Pulse Resp B/P Pulse Ox O2 Delivery O2 Flow Rate FiO2 12/03/16 12:05 65 12/03/16 11:10 97.8 20 128/68 96 12/03/16 08:15 Nasal Cannula 2.0 Intake and Output 12/02/16 12/02/16 12/03/16 15:00 23:00 07:00 Intake Total 760 ml 250 ml Output Total 800 ml Balance -40 ml 250 ml Exam PHYSICAL EXAMINATION: GENERAL: Well-nourished well developed gentleman comfortable at rest VITAL SIGNS: NECK: Supple. No JVD. No lymphadenopathy. HEART: S1, S2. No added sounds or murmurs. CHEST: Diminished air entry bilaterally. ABDOMEN: Soft, nontender. No guarding or rebound. EXTREMITIES: No cyanosis, clubbing. Edema plus 2. NEUROLOGIC: Generalized weakness. Results/Medications Result Diagram: 12/02/16 1411 12/02/16 0605 Medications Current Medications Acetaminophen 650 mg 650 mg Q6H PRN [place] PAIN; Start 11/28/16 at 00:00 Sodium Chloride (NS) 1,000 ml @ 0 mls/hr Q0M IV ; Start 11/28/16 at 00:00 Colchicine (Colchicine) 0.6 mg BID PO Last administered on 12/03/16 08:09; Admin Dose 0.6 MG; Start 11/28/16 at 10:30 Morphine Sulfate 2 mg 2 mg Q4H PRN IV PAIN Last administered on 11/29/16 03:18 ; Admin Dose 2 MG; Start 11/28/16 at 09:30 Cefepime HCl 50 ml @ 100 mls/hr Q12 IVPB Last administered on 12/03/16 08:10; Admin Dose 100 MLS/HR; Start 11/28/16 at 11:30 Doxycycline Hyclate/Sodium Chloride (Vibramycin/NS) 250 ml @ 250 mls/hr Q12 IVPB Last administered on 12/03/16 09:30; Admin Dose 250 MLS/HR; Start at 11:30 Pantoprazole (Protonix Tab) 40 mg DAILY@06 PO Last administered on 12/03/16 06: 13; Admin Dose 40 MG; Start 11/29/16 at 08:45 Enalapril Maleate (Vasotec) 5 mg DAILY PO Last administered on 12/03/16 10:54; Admin Dose 5 MG; Start 12/03/16 at 09:00 Amlodipine Besylate (Norvasc) 5 mg DAILY PO Last administered on 12/03/16 08:09 ; Admin Dose 5 MG; Start 12/03/16 at 09:00 Assessment/Plan Chief Complaint/Hosp Course 1. Pericardial effusion status post pericardiocentesis 2. History of first-degree heart block 3. History of remote tobacco use 4. Stable chronic anemia 5. Hypoxemia secondary to underlying COPD and pericardial effusion. Plan 1. Await cytology results. 2. Supplemental O2 as needed 3. Cardiac recommendations 4. Encourage out of bed as tolerated Discharge planning okay from pulmonary standpoint Problems: YO HAQUE MD, [facility] Dec 03, 2016 15:26
--- NOTE | 2016-12-03 23:18 | CONS ---
Date/Time of Note Date/Time of Note DATE: 12/03/16 TIME: 10:17 VK LE Assessment/Plan Assessment/Plan Chief Complaint/Hosp Course ANEMIA WITH DROP OF H/H DURING HOSPITALIZATION MONITOR COUNT CLOSELY OBSERVE FOR BLEEDING AND HEMOLYSIS PRBC NEEDED + COMPONENT ACD Acute pericarditis- s/p pericardicentesis Pleurisy with possible polyserositis s/p pericardiocentesis with 700mL removed 11/28. Serosanguineous and concerning for possible malignancy. Awaiting cytology DM type 2- corrected by diet HTN LBP- with spinal stenosis Dyslipidemia Memory impairment PTSD BPH LORENZO Osteoporosis Dizziness Major depression Weight loss Hx of having 1 degree AV block Recurrent pneumonias Low vit "D" level OK TO DC F-UPON THE FLUID RESULT Problems: Consultation Date/Type/Reason Admit Date/Time Nov 28, 2016 at 23:55 Initial Consult Date 11/28/16 Type of Consultation: HEMEON Referring Provider: SALEEM LEWIS MD 24 HR Interval Summary Free Text/Dictation ALL NOTED NO NEW EVENTS FELLING BETTER GOING HOME TODAY Exam/Review of Systems Vital Signs Vitals Vital Signs Date Time Temp Pulse Resp B/P Pulse Ox O2 Delivery O2 Flow Rate FiO2 12/03/16 12:05 65 12/03/16 11:10 97.8 20 128/68 96 12/03/16 08:15 Nasal Cannula 2.0 Intake and Output 12/02/16 12/02/16 12/03/16 14:59 22:59 06:59 Intake Total 760 ml 250 ml Output Total 800 ml Balance -40 ml 250 ml Exam Constitutional: alert, frail, oriented, well developed, No distress, No non-verbal, No obese, No other Psych: anxiety, confusion, depression, nl mood/affect, No no complaints, No other, No suicidal Head: atraumatic, normocephalic Eyes: EOMI, PERRL, nl lids, No fundi, disc, No icteric, No nl conjunctiva, No nl sclera, No other ENMT: nl nasal mucosa & septum, No intubated, No mucosa pink and moist, No nl external ears & nose, No nl lips & teeth, No other, No tympanic membranes Neck: bruits, jvd, No masses, No non-tender, No nuchal rigidity, No other, No supple, No thyromegaly Respiratory: congested cough, diminished breath sounds, normal air movement, No clear to auscultation, No crackles/rales, No intercostal retraction, No labored breathing, No other, No respirations, No tactile fremitus, No wheezing Cardiovascular: bruits, nl pulses, other (Pericardocentesis catheter in place. No crepitations. No hematomas.), regular rate and rhythm, No S3, No S4, No diastolic murmur, No edema, No gallop, No irregular rhythm, No jugular venous distention (JVD), No murmurs/extra sounds, No rub, No systolic murmur Gastrointestinal: nl liver, spleen, soft, No ascites, No bowel sounds, No distended, No firm, No hepatomegaly, No mass , No non-tender, No other, No rebound or guarding, No splenomegaly, No surgical scars, No tender Musculoskeletal: joint tenderness, muscle tone, muscle weakness Neurological: FOOTBALL SCOUT II-XII intact (decreased hearing.), confused, nl mental status, nl speech, nl strength, numbness, No DTR's symmetric, No focal weakness, No lethargic, No other, No reflexes, No unresponsive Skin: nl turgor, No diaphoresis, No ecchymosis, No laceration, No other, No puncture, No rash or lesions Results Result Diagram: 12/02/16 1411 12/02/16 0605 FILEMON REIS MD Dec 03, 2016 23:18
== END 2016-12-03 15:35 | disposition home health service (06) | DRG 314 ==
LOC: E/R 19:46 → CCL 11-28 07:32 → SDS 11-28 07:32 → ICU 11-28 09:00 → CCL 11-28 23:55 → ICU 11-28 23:55 → TEL 12-01 16:15
PROVIDERS: ADMIT Internal Medicine Interventional Cardiology; ATTEND Internal Medicine Interventional Cardiology
PROC: 0W9D30Z Drainage of Pericardial Cavity with Drainage Device, Percutaneous Approach (ICD-10-PCS; principal; 2016-11-28 07:30)
DX: I30.9 Acute pericarditis, unspecified (principal); I50.31 Acute diastolic (congestive) heart failure; J44.9 Chronic obstructive pulmonary disease, unspecified; E11.9 Type 2 diabetes mellitus without complications; D64.9 Anemia, unspecified; F32.9 Major depressive disorder, single episode, unspecified; I11.0 Hypertensive heart disease with heart failure; E78.5 Hyperlipidemia, unspecified; M48.00 Spinal stenosis, site unspecified; R41.3 Other amnesia; F43.10 Post-traumatic stress disorder, unspecified; N40.0 Benign prostatic hyperplasia without lower urinary tract symptoms; G47.33 Obstructive sleep apnea (adult) (pediatric); M81.0 Age-related osteoporosis without current pathological fracture; Z87.01 Personal history of pneumonia (recurrent); K21.9 Gastro-esophageal reflux disease without esophagitis; Z87.891 Personal history of nicotine dependence; R09.02 Hypoxemia
CPT/HCPCS: 33010; 36415; 71010; 76700; 80048; 82306; 82378; 82550; 82553; 82607; 82728; 82746; 82945; 83540; 83615; 83735; 84100; 84157; 84443; 84484; 84560; 85025; 85045; 85610; 85651; 85730; 86140; 86644; 86658; 86664; 87070; 87081; 87102; 87116; 88104; 88305; 89051; 93005; 93308; 96372; 96374; C9113; J0692; J1644; J1885; J2250; J2270; J2916; J3010; J3475; J7050